=== PATIENT | female | born 1950 | race Caucasian/White ===

== ENCOUNTER 2017-03-10 14:52 | Emergency (ER) | payer OTHER ==
--- NOTE | 2017-03-10 14:56 | PDOC ---
Rapid Medical Evaluation Chief Complaint: Pain Time Seen by Provider: 03/10/17 14:55 Medical Evaluation: Allergies Allergy/AdvReac Type Severity Reaction Status Date / Time No Known Allergies Allergy Verified 09/26/14 12:56 03/10/17 14:57 Pt her for c/o: llq pain with diarrhea since tuesday, no fever, no urinary complaints, no hx of diverticulitis Pt on exam: afebrile, Pt ordered for : ua, ucx, cbc, comp Pt to proceed to the ED Discharge Disposition - Diagnosis Left sided abdominal pain - Referrals - Patient Instructions - Post Discharge Activity
[2017-03-10 14:57] VITALS: BMI 29.2
[2017-03-10 15:17] LABS: BASOPHIL 0.3 % (0-2.0); EOSINOPHIL 0.5 % (0-4.5); MCH 29.9 pg (25.7-33.7); MCHC 33.6 g/dl (32.0-36.0); MEAN CELL VOLUME 88.9 fl (80-96); MEAN PLT VOLUME 7.2 fl (7.5-11.1); NEUTROPHILS 74.5 % (42.8-82.8); PLATELET COUNT 307 K/MM3 (134-434); RDW 13.9 % (11.6-15.6); WHITE BLOOD COUNT 7.9 K/mm3 (4.0-10.0)
[2017-03-10 15:39] LABS: ALBUMIN 4.2 g/dl (3.4-5.0); ALK PHOS 136 U/L (45-117); ANION GAP 8 (8-16); BILIRUBIN,TOTAL 0.4 mg/dL (0.2-1.0); CALCIUM 9.6 mg/dL (8.5-10.1); CO2 26 mmol/L (21-32); CREATININE 0.6 mg/dL (0.55-1.02); GLUCOSE,RANDOM 129 mg/dL (74-106); SGOT/AST 10 U/L (15-37); SGPT/ALT 17 U/L (12-78); TOT PROT 7.9 g/dl (6.4-8.2)
[2017-03-10 15:40] LABS: URINE APPEARANCE SLCLOUDY; URINE BILIRUBIN NEGATIVE (NEGATIVE); URINE BLOOD 1+ (NEGATIVE); URINE COLOR YELLOW; URINE GLUCOSE (UA) NEGATIVE (NEGATIVE); URINE KETONE TRACE (NEGATIVE); URINE NITRITE POSITIVE (NEGATIVE); URINE PROTEIN NEGATIVE (NEGATIVE); URINE UROBILINOGEN NEGATIVE mg/dL (0.2-1.0)
[2017-03-10 17:15] LABS: URINE BACTERIA MODERATE /hpf (NONE SEEN); URINE MUCUS RARE; URINE WBC 35 /hpf (3-5)
[2017-03-10 17:24] LABS: URINE RBC 12 /hpf (0-3)
--- NOTE | 2017-03-10 17:44 | PDOC ---
Attending Attestation - Resident Resident Name: Archana Weaver - ED Attending Attestation I have performed the following: I have examined & evaluated the patient, The case was reviewed & discussed with the resident, I agree w/resident's findings & plan, Exceptions are as noted - HPI HPI: 03/10/17 17:37 66yo F hx HTN (pt states has only been given benicar samples from PMD) p/w LLQ pain radiating to L back intermittently for 4 days. Happens approx 2 times per day. Tried immodium without relief. Pt concerned she may have kidney stone. Also reports maloudorous urine, and frequency. Also reports non bloody diarrhea once 5 days ago but had a normal BM yesterday. Reports 1 day of "wheezing" in her lungs. Denies fevers, chills, chest pain, shortness of breath. Denies headache, focal weakness or numbness. Denies rashes. Denies history of renal colic. - Physicial Exam PE: 03/10/17 18:17 GENERAL: Awake, alert, and fully oriented, in no acute distress HEAD: No signs of trauma EYES: PERRLA, EOMI, sclera anicteric, conjunctiva clear ENT: Auricles normal inspection, hearing grossly normal, nares patent, oropharynx clear without exudates. Moist mucosa NECK: Normal ROM, supple, no lymphadenopathy, JVD, or masses LUNGS: Breath sounds equal, good airmovement but diffuse wheezing throughout. No work of breathing HEART: Regular rate and rhythm, normal S1 and S2, no murmurs, rubs or gallops ABDOMEN: Soft, LLQ ttp, normoactive bowel sounds. No guarding, no rebound. No masses. No CVAT EXTREMITIES: Normal range of motion, no edema. No clubbing or cyanosis. No cords, erythema, or tenderness NEUROLOGICAL: Normal speech, cranial nerves intact, negative pronator drift, 5/ 5 strength in all 4 extremities, normal sensation to light touch in all 4 extremities, normal cerebellar exam, normal gait, normal reflexes and tone SKIN: Warm, Dry, normal turgor, no rashes or lesions noted. - Medical Decision Making 03/10/17 18:19 66-year-old female with a history of hypertension presents with 4 days of intermittent left flank pain associated with malodorous urine. BP elevated to 150s systolic, pt reports she has not taken her BP medication in months. Exam is remarkable for mild left lower quadrant tenderness to palpation. Lungs also with diffuse wheezing. With regards to the left lower quadrant tenderness in association with malodorous urine there is concern for infected stone. Will obtain a CT/UA. Wheezing may be secondary to a viral upper respiratory infection as the patient's has a sick grandson at home. Will obtain a chest x- ray to rule out pneumonia and give duonebs and reassess. 03/10/17 18:32 Labs unremarkable. Urinalysis is nitrite positive with many white cells. Likely UTI. CT scan is pending for renal colic. CXR pending 03/10/17 19:00 Patient signed out to for further management.
--- NOTE | 2017-03-10 17:47 | PDOC ---
History of Present Illness - General Chief Complaint: Pain Stated Complaint: ABD PAIN Time Seen by Provider: 03/10/17 14:55 History Source: Patient Exam Limitations: No Limitations - History of Present Illness Initial Comments: This is a 66 YOF with h/o HTN who presents with episodic 7/10 LLQ cramping radiating to her left back for the past 3-4 days. She notes that the episodes come on twice a day for about an hour each, and generally the intensity is increasing over time. She has not taken any medications for her symptoms, and has never had pain like this before. She additionally notes strong and strange smell to her urine, urinary frequency, headache, and recent cough and wheezing. She denies any burning on urination, any hematuria, or any chest pain or shortness of breath. Pain Radiation: reports: no radiation Past History - Past Medical History Allergies/Adverse Reactions: Allergies Allergy/AdvReac Type Severity Reaction Status Date / Time No Known Allergies Allergy Verified 03/10/17 14:57 Home Medications: Ambulatory Orders Sulfamethoxazole/Trimethoprim [Bactrim Ds -] 1 tab PO BID #14 tablet 03/10/17 Anemia: No Asthma: No Cancer: No Cardiac Disorders: No COPD: No HTN: Yes (not on meds) - Surgical History Abdominal Surgery: Yes Cholecystectomy: Yes Gastric Stapling: No GI Surgery: No - Immunization History Immunization Up to Date: Yes - Suicide/Smoking/Psychosocial Hx Smoking Status: No Smoking History: Never smoked Have you smoked in the past 12 months: No Number of Cigarettes Smoked Daily: 0 Information on smoking cessation initiated: No Hx Alcohol Use: No Drug/Substance Use Hx: No Substance Use Type: None Review of Systems - Review of Systems Able to Perform ROS?: Yes Constitutional: No: Chills, Fever, Unexplained wgt Loss HEENTM: No: Nose Congestion, Throat Pain Respiratory: Yes: Cough, Wheezing. No: Shortness of Breath Cardiac (ROS): No: Chest Pain, Palpitations ABD/GI: Yes: Other (abdominal pain). No: Constipated, Diarrhea, Nausea, Vomiting : Yes: Frequency. No: Burning, Hematuria Musculoskeletal: Yes: Back Pain. No: Neck Pain Integumentary: No: Bruising, Rash Neurological: No: Headache, Numbness, Tingling, Weakness, Dizziness Endocrine: No: Unexplained Weight Gain, Unexplained Weight Loss *Physical Exam - Vital Signs Last Vital Signs Temp Pulse Resp BP Pulse Ox 97.7 F 89 18 158/91 98 03/10/17 14:54 03/10/17 14:54 03/10/17 14:54 03/10/17 14:54 03/10/17 14:54 - Physical Exam General Appearance: Yes: Nourished, Appropriately Dressed. No: Apparent Distress HEENT: positive: EOMI, Normal Voice, Hearing Grossly Normal. negative: Scleral Icterus (R), Scleral Icterus (L), Nasal Congestion Neck: positive: Trachea midline, Supple. negative: Tender, Rigid Respiratory/Chest: positive: Lungs Clear, Normal Breath Sounds, Wheezing (mild) . negative: Respiratory Distress, Crackles, Stridor Cardiovascular: positive: Regular Rhythm, Regular Rate. negative: Murmur Gastrointestinal/Abdominal: positive: Normal Bowel Sounds, Tender (mild left lower quadrant ttp), Soft. negative: Organomegaly, Pulsatile Mass, Guarding Musculoskeletal: positive: Normal Inspection. negative: Decreased Range of Motion, Vertebral Tenderness Extremity: positive: Normal Capillary Refill, Normal Inspection, Normal Range of Motion. negative: Tender, Cyanosis Integumentary: positive: Normal Color, Dry, Warm. negative: Erythema, Rash, Bruising Neurologic: positive: marketing recruiter II-XII NML intact, Fully Oriented, Alert, Normal Mood/ Affect, Normal Response, Motor Strength /5 ED Treatment Course - LABORATORY CBC & Chemistry Diagram: 03/10/17 15:05 03/10/17 15:05 - ADDITIONAL ORDERS Additional order review: Laboratory Results 03/10/17 03/10/17 15:25 15:05 Sodium 140 Potassium 4.1 Chloride 106 Carbon Dioxide 26 Anion Gap 8 BUN 13 Creatinine 0.6 Creat Clearance w eGFR > 60 Random Glucose 129 H D Calcium 9.6 Total Bilirubin 0.4 D AST 10 L D ALT 17 D Alkaline Phosphatase 136 H D Total Protein 7.9 Albumin 4.2 D Urine Color Yellow Urine Appearance Slcloudy Urine pH 6.0 Ur Specific [place] 1.018 Urine Protein Negative Urine Glucose (UA) Negative Urine Ketones Trace H Urine Blood 1+ H Urine Nitrite Positive Urine Bilirubin Negative Urine Urobilinogen Negative Urine WBC (Auto) 35 Urine RBC (Auto) 12 Urine Bacteria Moderate Urine Mucus Rare 03/10/17 15:05 RBC 4.34 MCV 88.9 MCHC 33.6 RDW 13.9 MPV 7.2 L Neutrophils % 74.5 Lymphocytes % 20.4 Monocytes % 4.3 Eosinophils % 0.5 Basophils % 0.3 Medical Decision Making - Medical Decision Making 66 YOF with HTN who presents with LLQ pain radiating to the left back x3-4d with urine odor and frequency. On exam she has mild ttp LLQ and no significant CVA tenderness. Also wheezy on lung exam. DDX IBNLT UTI, pyelo, obstructing stone, diverticulitis, colitis, etc. Ordered is UA Cx, CBCD, CMP, lipase, CXR, spiral CT. 03/10/17 18:46 Patient with e/o UTI on UA; culture pending. Other lab work non-directive. Patient still awaiting spiral CT. Care signed out to night resident at the end of my shift. *DC/Admit/Observation/Transfer Diagnosis at time of Disposition: Left sided abdominal pain, UTI (urinary tract infection) - Discharge Dispostion Disposition: HOME - Prescriptions Prescriptions: Sulfamethoxazole/Trimethoprim [Bactrim Ds -] 1 tab PO BID #14 tablet - Referrals - Patient Instructions Printed Discharge Instructions: DI for Urinary Tract Infection (UTI) Additional Instructions: Follow-up with your primary care doctor within 1 week. Your blood pressure was elevated in the emergency department, please discussed with her primary doctor and he may need to take blood pressure medications on a daily basis. Return to the emergency department if you have any new, worsening or concerning symptoms. - Post Discharge Activity
[2017-03-10 17:52] VITALS: TEMP 98.2
[2017-03-10 18:20] VITALS: BP 152/86; PULSE 85
[2017-03-10] MEDS ORDERED: ALBUTEROL SO4 2.5/IPRATROPIUM 0.5 INH SOL 3 ML VIAL.NEB. NEB ONE ×2 (18:21→18:42)
[2017-03-10] MEDS ORDERED: SULFAMETHOXAZOLE/TRIMETHOPRIM 800MG/160MG D.S. TABLET PO ONE (19:12)
[2017-03-10 19:38] LABS: URINE LEUK ESTERASE TRACE (NEGATIVE)
[2017-03-10] MEDS ORDERED: SULFAMETHOXAZOLE/TRIMETHOPRIM 800MG/160MG D.S. TABLET ONE (19:57)
--- NOTE | 2017-03-10 21:34 | PDOC ---
*Physical Exam - Vital Signs Last Vital Signs Temp Pulse Resp BP Pulse Ox 98.2 F 85 16 152/86 98 03/10/17 17:51 03/10/17 18:19 03/10/17 18:19 03/10/17 18:19 03/10/17 18:19 ED Treatment Course - LABORATORY CBC & Chemistry Diagram: 03/10/17 15:05 03/10/17 15:05 - ADDITIONAL ORDERS Additional order review: Laboratory Results 03/10/17 03/10/17 15:25 15:05 Sodium 140 Potassium 4.1 Chloride 106 Carbon Dioxide 26 Anion Gap 8 BUN 13 Creatinine 0.6 Creat Clearance w eGFR > 60 Random Glucose 129 H D Calcium 9.6 Total Bilirubin 0.4 D AST 10 L D ALT 17 D Alkaline Phosphatase 136 H D Total Protein 7.9 Albumin 4.2 D Urine Color Yellow Urine Appearance Slcloudy Urine pH 6.0 Ur Specific [place] 1.018 Urine Protein Negative Urine Glucose (UA) Negative Urine Ketones Trace H Urine Blood 1+ H Urine Nitrite Positive Urine Bilirubin Negative Urine Urobilinogen Negative Ur Leukocyte Esterase Trace H Urine WBC (Auto) 35 Urine RBC (Auto) 12 Urine Bacteria Moderate Urine Mucus Rare 03/10/17 15:05 RBC 4.34 MCV 88.9 MCHC 33.6 RDW 13.9 MPV 7.2 L Neutrophils % 74.5 Lymphocytes % 20.4 Monocytes % 4.3 Eosinophils % 0.5 Basophils % 0.3 - Medications Given in the ED: ED Medications Discontinued Medications Generic Name Dose Route Start Last Admin Trade Name Freq PRN Reason Stop Dose Admin Albuterol/Ipratropium 2 amp 03/10/17 18:21 03/10/17 18:24 Duoneb - NEB 03/10/17 18:22 2 amp ONCE ONE Administration Trimethoprim/Sulfamethoxazole 1 each 03/10/17 19:12 03/10/17 19:59 Bactrim Ds - PO 03/10/17 19:13 1 each ONCE ONE Administration Medical Decision Making - Medical Decision Making 03/10/17 21:31 patient signed out from Dr. Weaver 03/10/17 21:32 1. No obstructive uropathy. No urinary tract calculi. 2. Focal area of cortical scarring/volume loss in the midpole of the right kidney with 8 mm cortical calcification, most likely the sequela of prior infection or infarction. 3. Status post cholecystectomy. Moderate-sized right upper quadrant incisional hernia containing predominantly fat and portion of the wall in the proximal transverse colon. No evidence of bowel obstruction. 4. Submucosal fat deposition throughout the colon is suggestive of chronic recurrent inflammation. 5. Normal appendix. Patient will be discharged with Bactrim Ds prescription. *DC/Admit/Observation/Transfer Diagnosis at time of Disposition: Left sided abdominal pain, UTI (urinary tract infection) - Discharge Dispostion Disposition: HOME Admit: No - Prescriptions Prescriptions: Sulfamethoxazole/Trimethoprim [Bactrim Ds -] 1 tab PO BID #14 tablet - Referrals - Patient Instructions Printed Discharge Instructions: DI for Urinary Tract Infection (UTI) Additional Instructions: Follow-up with your primary care doctor within 1 week. Your blood pressure was elevated in the emergency department, please discussed with her primary doctor and he may need to take blood pressure medications on a daily basis. Return to the emergency department if you have any new, worsening or concerning symptoms. - Post Discharge Activity
--- NOTE | 2017-03-12 08:24 | PDOC ---
Patient Follow-up (Call Back) - Post ED Follow - Up Disposition at time of original discharge: HOME Reason for Call Back: Abnwl. Microbiology (Pt on batrim. Will await final cx report)
== END 2017-03-10 21:48 | disposition home or self-care (01) ==
LOC: JER 14:52
PROC: 3E0F7GC Introduction of Other Therapeutic Substance into Respiratory Tract, Via Natural or Artificial Opening (ICD-10-PCS; principal; 2017-03-10)
DX: N39.0 Urinary tract infection, site not specified (principal); I10 Essential (primary) hypertension
CPT/HCPCS: 36415; 71020-TC; 74176; 80053; 81003; 81015; 85025; 87086; 87186; 99282-25

== ENCOUNTER 2017-07-11 22:44 | Emergency (ER) | payer OTHER ==
[2017-07-11 22:54] VITALS: BP 158/93; PULSE 87; TEMP 97.4; BMI 27.3
--- NOTE | 2017-07-12 00:27 | PDOC ---
History of Present Illness - General Chief Complaint: Pain Stated Complaint: ABDOMINAL PAIN, LUMP Time Seen by Provider: 07/12/17 00:27 - History of Present Illness Initial Comments: 66 year old female with PMH of HTN (currently unmedicated because of loss of PCP) presenting with RLQ pain and swelling for the past day. States that she sometimes feels a lump there. She is a very poor medical instructor and doesn't recall ever being told she has a hernia at that site but imaging in our system demonstrated a fat and traverse colon wall hernia in that region. Denies fevers , nausea, vomiting, diarrhea, constipation, urinary symptoms, or other symptoms. She did not take any OTC medications because she "does not believe in medication". 07/12/17 01:51 Past History - Past Medical History Allergies/Adverse Reactions: Allergies Allergy/AdvReac Type Severity Reaction Status Date / Time No Known Allergies Allergy Verified 07/11/17 22:50 Home Medications: Ambulatory Orders Sulfamethoxazole/Trimethoprim [Bactrim Ds -] 1 tab PO BID #14 tablet 03/10/17 Anemia: No Asthma: No Cancer: No Cardiac Disorders: No COPD: No HTN: Yes (not on meds) - Surgical History Abdominal Surgery: Yes Cholecystectomy: Yes Gastric Stapling: No GI Surgery: No - Immunization History Immunization Up to Date: Yes - Suicide/Smoking/Psychosocial Hx Smoking Status: No Smoking History: Never smoked Have you smoked in the past 12 months: No Number of Cigarettes Smoked Daily: 0 Information on smoking cessation initiated: No Hx Alcohol Use: No Drug/Substance Use Hx: No Substance Use Type: None Review of Systems - Review of Systems Constitutional: No: Chills, Diaphoresis, Fever HEENTM: No: Blurred Vision, Tearing, Double Vision Respiratory: No: Cough, Orthopnea, Shortness of Breath, Wheezing Cardiac (ROS): No: Chest Pain, Edema, Syncope ABD/GI: No: Diarrhea, Nausea, Vomiting : No: Burning, Dysuria, Discharge Integumentary: Yes: Lumps. No: Change in Color, Lesions, Pruritus, Rash Neurological: No: Headache, Numbness, Paresthesia Endocrine: No: Flushing, Intolerance to Cold Hematologic/Lymphatic: No: Anemia, Easy Bleeding *Physical Exam - Vital Signs Last Vital Signs Temp Pulse Resp BP Pulse Ox 97.4 F L 87 18 158/93 100 07/11/17 22:50 07/11/17 22:50 07/11/17 22:50 07/11/17 22:50 07/11/17 22:50 - Physical Exam General Appearance: Yes: Nourished, Appropriately Dressed. No: Apparent Distress HEENT: positive: EOMI, AMIRA, Normal ENT Inspection, Normal Voice Neck: positive: Trachea midline, Normal Thyroid, Supple. negative: Tender, Rigid Respiratory/Chest: positive: Lungs Clear, Normal Breath Sounds. negative: Chest Tender, Respiratory Distress, Accessory Muscle Use Cardiovascular: positive: Regular Rhythm, Regular Rate Gastrointestinal/Abdominal: positive: Normal Bowel Sounds, Tender (tender in RUQ over site of a soft mass). negative: Flat (Soft mass in RUQ that was able to be reduced. Reduction of mass immediately resulted increaed bowel sounds and relief of pain) Musculoskeletal: positive: Normal Inspection. negative: CVA Tenderness Extremity: positive: Normal Capillary Refill, Normal Inspection, Normal Range of Motion Integumentary: positive: Normal Color, Dry, Warm Neurologic: positive: Fully Oriented, Alert, Normal Mood/Affect, Normal Response ED Treatment Course - LABORATORY CBC & Chemistry Diagram: 07/12/17 00:58 07/12/17 00:58 Medical Decision Making - Medical Decision Making 66 year old female with known RUQ hernia with worsening pain and mass in that area. Hernia likely reduced during physical exam with relief of pain. CT A/P demonstrating spigalien hernia without bowel obstruction or incarceration. Will DC with anti-inflammatory use instructions and general surgery follow up. 07/12/17 03:30 *DC/Admit/Observation/Transfer Diagnosis at time of Disposition: Spigelian hernia - Discharge Dispostion Disposition: HOME Condition at time of disposition: Improved Admit: No - Referrals Referrals: Valerio Mata MD [Staff Physician] - - Patient Instructions Printed Discharge Instructions: DI for Hernia Repair Additional Instructions: You have a hernia that we reduced here in the ED. You absolutely need to follow up with general surgery this week and discuss the option for surgical repair. Please use Tylenol and Motrin for pain. Please return to the ED if you have new or worsening symptoms. - Post Discharge Activity
[2017-07-12 01:06] LABS: HEMATOCRIT 35.7 % (32.4-45.2); HEMOGLOBIN 12.1 GM/dL (10.7-15.3); MCH 30.4 pg (25.7-33.7); MCHC 33.8 g/dl (32.0-36.0); MEAN PLT VOLUME 7.3 fl (7.5-11.1); PLATELET COUNT 276 K/MM3 (134-434); RBC 3.97 M/mm3 (3.60-5.2); RDW 13.8 % (11.6-15.6); WHITE BLOOD COUNT 7.8 K/mm3 (4.0-10.0)
--- NOTE | 2017-07-12 01:27 | PDOC ---
Attending Attestation - Resident Resident Name: Domingo Soriano - ED Attending Attestation I have performed the following: I have examined & evaluated the patient, The case was reviewed & discussed with the resident, I agree w/resident's findings & plan, Exceptions are as noted - HPI HPI: 07/12/17 01:12 66-year-old female with history of hypertension, cholecystectomy, no primary care physician presents with 1 day of right-sided abdominal pain and "swelling" . The patient reports that she felt the lump but denied any nausea or vomiting or diarrhea or fevers. Patient did report 2 days ago for one episode of loose stools and now resolved. Denies sick contacts or recent travels. Came to the ED for evaluation. - Physicial Exam PE: 07/12/17 01:26 GENERAL: Awake, alert, and fully oriented, in no acute distress. HEAD: No signs of trauma EYES: PERRLA, EOMI, sclera anicteric, conjunctiva clear ENT: Auricles normal inspection, hearing grossly normal, nares patent NECK: Normal ROM, supple ABDOMEN: TTP mild R mid abdomen. negative mejia sign. Soft, No guarding, no rebound. No masses EXTREMITIES: Normal range of motion, no edema. No clubbing or cyanosis. No cords, erythema, or tenderness NEUROLOGICAL: Cranial nerves II through XII grossly intact. Normal speech, normal gait SKIN: Warm, Dry, normal turgor, no rashes or lesions noted. - Medical Decision Making 07/12/17 01:27 Vital Signs Temp Pulse Resp BP Pulse Ox 97.4 F L 87 18 158/93 100 07/11/17 22:50 07/11/17 22:50 07/11/17 22:50 07/11/17 22:50 07/11/17 22:50 58-year-old female presents with right-sided abdominal pain. The patient was seen previously by my resident, Dr. Soriano, who had appreciated potential incisional hernia right along her old scars of a cholecystectomy. I suspect this is likely the case. We'll obtain blood work and a CAT scan abdomen pelvis. If workup demonstrates no incarceration or strength relation and otherwise negative workup, the patient to be discharged with general surgery follow-up as well as a primary care physician follow-up. 07/12/17 03:29 CBC, BMP 07/12/17 00:58 07/12/17 00:58 CMP Sodium 141 mmol/L (136-145) 07/12/17 00:58 Potassium 3.6 mmol/L (3.5-5.1) 07/12/17 00:58 Chloride 107 mmol/L (98-107) 07/12/17 00:58 Carbon Dioxide 30 mmol/L (21-32) 07/12/17 00:58 Anion Gap 4 (8-16) L 07/12/17 00:58 BUN 16 mg/dL (7-18) 07/12/17 00:58 Creatinine 0.7 mg/dL (0.55-1.02) 07/12/17 00:58 Creat Clearance w eGFR > 60 (>60) 07/12/17 00:58 Random Glucose 112 mg/dL (74-106) H 07/12/17 00:58 Calcium 8.6 mg/dL (8.5-10.1) 07/12/17 00:58 Total Bilirubin 0.1 mg/dL (0.2-1.0) L D 07/12/17 00:58 AST 15 U/L (15-37) 07/12/17 00:58 ALT 15 U/L (12-78) 07/12/17 00:58 Alkaline Phosphatase 140 U/L (45-117) H 07/12/17 00:58 Total Protein 7.5 g/dl (6.4-8.2) 07/12/17 00:58 Albumin 3.9 g/dl (3.4-5.0) 07/12/17 00:58 Lipase 87 U/L (73-393) 07/12/17 00:58 CT scan demonstrates moderate size right Emiliano and hernia containing fat and inflamed, demonstrated traction and descending colon without felipe colonic entrapment or bowel obstruction. We'll have the patient follow-up with the general surgeon. Patient reports feeling better.
[2017-07-12 01:35] LABS: ALBUMIN 3.9 g/dl (3.4-5.0); ANION GAP 4 (8-16); BILIRUBIN,TOTAL 0.1 mg/dL (0.2-1.0); BLOOD UREA NITROGEN 16 mg/dL (7-18); CALCIUM 8.6 mg/dL (8.5-10.1); CHLORIDE 107 mmol/L (98-107); CO2 30 mmol/L (21-32); CREATININE 0.7 mg/dL (0.55-1.02); GLUCOSE,RANDOM 112 mg/dL (74-106); LIPASE 87 U/L (73-393); POTASSIUM 3.6 mmol/L (3.5-5.1); SGOT/AST 15 U/L (15-37); SGPT/ALT 15 U/L (12-78); SODIUM 141 mmol/L (136-145); TOT PROT 7.5 g/dl (6.4-8.2)
[2017-07-12 01:36] LABS: ALK PHOS 140 U/L (45-117)
[2017-07-12 02:17] LABS: URINE APPEARANCE CLEAR; URINE BILIRUBIN NEGATIVE (<2.0 mg/dL); URINE BLOOD NEGATIVE (NEGATIVE); URINE COLOR LTYELLOW; URINE GLUCOSE (UA) NEGATIVE (NEGATIVE); URINE KETONE NEGATIVE (NEGATIVE); URINE LEUK ESTERASE TRACE (NEGATIVE); URINE NITRITE NEGATIVE (NEGATIVE); URINE PROTEIN NEGATIVE (NEGATIVE); URINE UROBILINOGEN NEGATIVE mg/dL (0.2-1.0)
[2017-07-12 02:50] LABS: EPI CELLS RARE /HPF (FEW); URINE MUCUS RARE
== END 2017-07-12 04:00 | disposition home or self-care (01) ==
LOC: JER 22:44
DX: K43.9 Ventral hernia without obstruction or gangrene (principal); I10 Essential (primary) hypertension
CPT/HCPCS: 36415; 74177-TC; 80053; 81003; 81015; 83690; 85027; 87086; 99283-25

== ENCOUNTER 2018-01-20 06:21 | Inpatient (IN) | payer MEDICARE, OTHER ==
[2018-01-20] MEDS ORDERED: ACETAMINOPHEN INJECTION 100 ML IVPB ONE (07:00)
[2018-01-20] MEDS ORDERED: SEVOFLURANE 250 ML BTL ONE (07:02)
[2018-01-20] MEDS ORDERED: DESFLURANE GAS 240 ML BOTTLE IH ONE (07:04)
[2018-01-20] MEDS ORDERED: PROPOFOL 20 ML ONE ×2 (07:07)
[2018-01-20] MEDS ORDERED: DEXAMETHASONE SOD PHOSPHATE 4 MG/1 ML VIAL ONE (07:07)
[2018-01-20] MEDS ORDERED: ROCURONIUM BROMIDE 50 MG/5 ML VIAL ONE ×2 (07:07)
[2018-01-20] MEDS ORDERED: LIDOCAINE HCL/PF 2% SDV 5ML VIAL ONE (07:07)
[2018-01-20] MEDS ORDERED: GLYCOPYRROLATE 0.2 MG/1 ML VIAL ONE (07:07)
[2018-01-20] MEDS ORDERED: SUCCINYLCHOLINE CHLORIDE 200 MG/10 ML VIAL ONE (07:08)
[2018-01-20] MEDS ORDERED: NEOSTIGMINE METHYLSULFATE 0.5 MG/ML - 10 ML MDV ONE (07:08)
[2018-01-20] MEDS ORDERED: MIDAZOLAM HCL 2 MG/2 ML SINGLE DOSE VIAL ONE (07:08)
--- NOTE | 2018-01-20 08:00 | HP ---
History & Physical Update - History History: No Change - Physical Physical: No Change - Assessment Assessment: No Change - Plan Plan: No Change (Full H&P in chart)
[2018-01-20] MEDS ORDERED: BUPIVACAINE HCL/PF 0.5% (5MG/ML) 10 ML VIAL ONE (08:03)
[2018-01-20] MEDS ORDERED: ceFAZolin SODIUM 1 GM VIAL IVPB ONE (08:57)
[2018-01-20] MEDS ORDERED: BUPIVACAINE HCL/PF 0.5% (5MG/ML) 10 ML VIAL IJ ONE (09:00)
[2018-01-20] MEDS ORDERED: ALBUTEROL SO4 8 GM HFA INHALER IH ONE (11:13)
[2018-01-20] MEDS ORDERED: PROMETHAZINE HCL 25 MG/1 ML VIAL IVPB PRN (11:37)
--- NOTE | 2018-01-20 11:44 | OP ---
Operative Note - Note: Operative Date: 01/20/18 Pre-Operative Diagnosis: Incarcerated incisional hernia Operation: Robotic assisted lysis of adhesions and incisional hernia repair Post-Operative Diagnosis: Same as Pre-op Surgeon: Judah Nieves Long Term Care Administrator: Kit Denton Anesthesiologist/PROJECT MANAGER/DESIGN MANAGER: Steven Underwood Anesthesia: General Estimated Blood Loss (mls): 30 Operative Report Dictated: Yes
--- NOTE | 2018-01-20 11:56 | OP ---
DATE OF OPERATION: 01/20/2018 PROCEDURE: Robotic-assisted laparoscopic lysis of adhesions and incisional hernia repair with mesh. PREOPERATIVE DIAGNOSIS: Incisional hernia with obstruction. POSTOPERATIVE DIAGNOSIS: Incisional hernia with obstruction and intraabdominal adhesions. SURGEON: Judah Nieves MD SPECIAL EDUCATION DIRECTOR: NINA Mares ANESTHESIA: General endotracheal. FINDINGS ON PROCEDURE: This is a 67-year-old female who presents with 8 x 6 c bulge of the right subcostal incision following cholecystectomy several years ago. The patient complains of right subcostal pain and bulging aggravated by exertion. Preoperative CT scan revealed an incarcerated incisional hernia containing fat. So, patient was advised repair of the hernia and consent was obtained after discussing the risks , benefits, and alternatives of the procedure. DESCRIPTION OF PROCEDURE: Patient was brought to the operating room and placed in supine position. General endotracheal anesthesia was administered. The abdomen was prepped and draped in the usual sterile fashion. Using 0.5% Marcaine, local anesthesia was administered to the proposed incision sites. A Veress needle was used to establish pneumoperitoneum via a puncture wound at the left subcostal region. Pneumoperitoneum was established. An 8-mm port was inserted at the infraumbilical area using scalpel blade No. 15. A 3D 30-degree laparoscope was inserted, and the peritoneal cavity was carefully inspected. It was noted to be free of inadvertent injury. Two 8-mm ports were inserted 8 cm away from the umbilical port, one to the right and one to the left side, in an oblique fashion. The target organ was set, and the robotic arms were docked. The EndoWrist ladonna connected to monopolar cautery was inserted at the left-sided port. The fenestrated bipolar forceps was inserted at the right port. The undersigned then scrubbed out to commence the consult part of the procedure. The dense omental adhesions to the posterior abdominal wall at the right upper quadrant region were taken down sharply using the EndoWrist ladonna connected to monopolar cautery. Hemostasis was achieved intermittently using the fenestrated bipolar forceps. The hernia was reduced with combined blunt traction and taking down of the adhesions using the EndoWrist ladonna. Part of the transverse colon was partially incarcerated. After the reduction was completed, the hernia defect which was about 4 cm in its widest diameter was closed with a continuous V-Loc No. 1 non-absorbable suture. This was followed by deployment of a 10 x 15 cm Symbotex Mesh with the adhesion barrier side facing the peritoneal cavity. The mesh was anchored to the posterior abdominal wall using the continuous V-Loc 2-0 absorbable sutures. After deployment was completed, small amount of blood and blood clots were suctioned. The peritoneal cavity was again carefully inspected and was noted to be free of inadvertent injury or active bleeding. The robotic arms were undocked, and the pneumoperitoneum was evacuated. The ports were removed and the wounds were closed with subcuticular Biosyn 4-0 sutures reinforced with Dermabond. The patient was successfully extubated and transferred to the post-anesthesia care unit in satisfactory condition. ESTIMATED BLOOD LOSS: About 30 mL. WOUND CLASS: Clean. The patient received 2 g of Ancef prior to the start of the procedure. Yamileth [id number] MTDD
--- NOTE | 2018-01-20 11:56 | SURG ---
Surgery Through Operator Note Through Operator: Kit Denton PA-C Date of Service: 01/20/18 Diagnosis: Incarcerated incisional hernia Procedure: Robotic assisted lysis of adhesions and incisional hernia repair I was present for the entirety of the operative procedure. For further detail, please refer to operative report.
[2018-01-20] MEDS ORDERED: ONDANSETRON 4 MG/2 ML VIAL ONE (12:19)
[2018-01-20] MEDS: ONDANSETRON 4 MG/2 ML VIAL IVPUSH PRN (12:30)
[2018-01-20] MEDS ORDERED: oxyCODONE HCL 5 MG TABLET ONE (12:44)
[2018-01-20] MEDS: oxyCODONE HCL 5 MG TABLET PO PRN ×3 (12:50→23:29)
[2018-01-20] MEDS ORDERED: HYDROmorphone HCl 2 MG/ML VIAL ONE (14:15)
[2018-01-20] MEDS: HYDROmorphone HCl 2 MG/ML VIAL IVPUSH PRN ×4 (14:30→15:10)
[2018-01-20] MEDS: LABETALOL HCL 5 MG/1 ML (100MG/20 ML VIAL) IVPUSH ONE ×2 (16:45→19:27)
[2018-01-20] MEDS: LACTATED RINGERS SOLUTION 1,000 ML IV SCH (19:26)
[2018-01-20] MEDS ORDERED: ONDANSETRON 4 MG/2 ML VIAL IVPUSH PRN (20:05)
[2018-01-20] MEDS: ACETAMINOPHEN 325 MG TABLET (FP) PO PRN (23:56)
[2018-01-21] MEDS: oxyCODONE HCL 5 MG TABLET PO PRN ×3 (02:13→17:38)
[2018-01-21] MEDS: ONDANSETRON 4 MG/2 ML VIAL IVPUSH PRN (02:50)
[2018-01-21] MEDS: LACTATED RINGERS SOLUTION 1,000 ML IV SCH (05:28)
[2018-01-21] MEDS: ACETAMINOPHEN 325 MG TABLET (FP) PO PRN ×2 (09:52→17:37)
[2018-01-21] MEDS ORDERED: morphine CARPU-JECT 2 MG/1 ML DISP.SYRIN IVPUSH PRN (14:41)
[2018-01-21] MEDS ORDERED: morphine SULFATE 4 MG/ML VIAL ONE (14:47)
[2018-01-21] MEDS: DEXTROSE 5%-0.45% SALINE 1,000 ML IV SCH (14:54)
--- NOTE | 2018-01-21 16:51 | CONSULT ---
Consult Consult Specialty:: Surgery - History of Present Illness Chief Complaint: Post-op pain and elevated BP History of Present Illness: 67 y.o. female s/p robotic assisted incisional hernia repair and lysis of adhesions admitted for moderate to severe abdominal pain unrelieved by p.o. narcotics associated with HTN and nausea. - History Source History Provided By: Patient Limitations to Obtaining History: No Limitations (open with subsequent development of incarcerated incisional hernia) - Past Medical History Cardio/Vascular: Yes: HTN Gastrointestinal: Yes: Irritable Bowel Disease (with alternating diarrhea and constipation) - Past Surgical History Past Surgical History: Yes: Cholecystectomy (Remote) - Alcohol/Substance Use Hx Alcohol Use: No - Smoking History Smoking history: Never smoked Have you smoked in the past 12 months: No Aproximately how many cigarettes per day: 0 - Social History ADL: Independent Home Medications - Allergies Allergies/Adverse Reactions: Allergies Allergy/AdvReac Type Severity Reaction Status Date / Time No Known Allergies Allergy Verified 01/20/18 06:57 - Home Medications Home Medications: Ambulatory Orders Aspirin [ASA -] 81 mg PO DAILY 01/16/18 Docusate Sodium [Colace] 100 mg PO BID #30 capsule 01/20/18 Oxycodone HCl/Acetaminophen [Percocet 5-325 mg Tablet] 1 tab PO Q6H PRN #16 tablet MDD 4 01/20/18 Review of Systems - Review of Systems Constitutional: reports: Loss of Appetite HENT: reports: No Symptoms Neck: reports: No Symptoms Cardiovascular: reports: No Symptoms Respiratory: reports: No Symptoms Gastrointestinal: reports: Abdominal Pain, Nausea Genitourinary: reports: No Symptoms Physical Exam Vital Signs: Vital Signs Temperature 98.2 F 01/21/18 15:56 Pulse Rate 90 01/21/18 15:56 Respiratory Rate 16 01/21/18 15:56 Blood Pressure 143/69 01/21/18 15:56 O2 Sat by Pulse Oximetry (%) 95 01/20/18 22:30 Constitutional: Yes: Obese Eyes: Yes: Conjunctiva Clear HENT: Yes: Normocephalic Neck: Yes: Supple Cardiovascular: Yes: Regular Rate and Rhythm Respiratory: Yes: CTA Bilaterally Gastrointestinal: Yes: Abdomen, Obese Extremities: Yes: WNL Wound/Incision: Yes: Clean/Dry, Dressing Dry and Intact (hernia site with ecchymosis and fullness consistent with seroma) Neurological: Yes: Alert, Oriented Problem List - Problems (1) HTN (hypertension) Assessment/Plan: Admit for medical management of elevated BP Code(s): I10 - ESSENTIAL (PRIMARY) HYPERTENSION (2) Incisional hernia Assessment/Plan: POS-OP Continue IV narcotics for severe pain Regular diet p.o laxative OOB, IS abdominal binder for comfort may D/C home when tolerating diet and when relieved by p.o. narcotrics Code(s): K43.2 - INCISIONAL HERNIA WITHOUT OBSTRUCTION OR GANGRENE
[2018-01-21] MEDS: DOCUSATE SODIUM 100 MG CAPSULE (FP) PO SCH (22:30)
--- NOTE | 2018-01-21 23:05 | HP ---
Admitting History and Physical - Past Medical History Cardiovascular: Yes: HTN Gastrointestinal: Yes: Irritable Bowel Disease (with alternating diarrhea and constipation) - Past Surgical History Past Surgical History: Yes: Cholecystectomy (Remote) - Smoking History Smoking history: Never smoked Have you smoked in the past 12 months: No Aproximately how many cigarettes per day: 0 - Alcohol/Substance Use Hx Alcohol Use: No - Social History ADL: Independent Home Medications - Allergies Allergies/Adverse Reactions: Allergies Allergy/AdvReac Type Severity Reaction Status Date / Time No Known Allergies Allergy Verified 01/20/18 06:57 - Home Medications Home Medications: Ambulatory Orders Aspirin [ASA -] 81 mg PO DAILY 01/16/18 Docusate Sodium [Colace] 100 mg PO BID #30 capsule 01/20/18 Oxycodone HCl/Acetaminophen [Percocet 5-325 mg Tablet] 1 tab PO Q6H PRN #16 tablet MDD 4 01/20/18 Physical Examination Vital Signs: Vital Signs Temperature 98.6 F 01/21/18 19:35 Pulse Rate 88 01/21/18 19:35 Respiratory Rate 18 01/21/18 21:00 Blood Pressure 148/83 01/21/18 19:35 O2 Sat by Pulse Oximetry (%) 94 L 01/21/18 21:00
[2018-01-22] MEDS ORDERED: morphine SULFATE 4 MG/ML VIAL IVPUSH PRN (02:26)
[2018-01-22] MEDS: oxyCODONE HCL 5 MG TABLET PO PRN ×2 (02:29→11:08)
[2018-01-22] MEDS: DEXTROSE 5%-0.45% SALINE 1,000 ML IV SCH ×2 (02:54→16:06)
[2018-01-22] MEDS: ACETAMINOPHEN 325 MG TABLET (FP) PO PRN ×2 (05:42→11:09)
[2018-01-22] MEDS: DOCUSATE SODIUM 100 MG CAPSULE (FP) PO SCH ×4 (05:42→21:14)
[2018-01-22 08:38] LABS: BASO % 0.5 % (0-2.0); EOS % 0.1 % (0-4.5); HEMATOCRIT 30.5 % (32.4-45.2); HEMOGLOBIN 10.1 GM/dL (10.7-15.3); LYMPH % 16.7 % (8-40); MEAN CELL VOLUME 90.8 fl (80-96); MEAN PLT VOLUME 8.3 fl (7.5-11.1); MONO % 5.5 % (3.8-10.2); NEUT % 77.2 % (42.8-82.8); PLATELET COUNT 202 K/MM3 (134-434); RBC 3.36 M/mm3 (3.60-5.2); RDW 14.5 % (11.6-15.6); WHITE BLOOD COUNT 12.1 K/mm3 (4.0-10.0)
[2018-01-22 09:11] LABS: ALK PHOS 121 U/L (45-117); ANION GAP 7 MMOL/L (8-16); BLOOD UREA NITROGEN 14 mg/dL (7-18); CALCIUM 8.2 mg/dL (8.5-10.1); CHLORIDE 102 mmol/L (98-107); CO2 25 mmol/L (21-32); CREATININE 0.6 mg/dL (0.55-1.3); GLUCOSE,RANDOM 131 mg/dL (74-106); POTASSIUM 3.8 mmol/L (3.5-5.1); SGOT/AST 60 U/L (15-37); SGPT/ALT 58 U/L (13-61); SODIUM 134 mmol/L (136-145)
[2018-01-22] MEDS: HEPARIN NA (PORCINE) 5,000 UNITS/ML 1ML VIAL SQ SCH ×2 (09:36→21:00)
--- NOTE | 2018-01-22 17:06 | PN ---
Progress Note (short form) - Note Progress Note: POD #2 Post-op pain decreased. No flatus or bm yet Vomited once but tolerated soup later. O2 sat noted to be low without O2 Afebrile, BP = 145/77 mm Hg Abd: obese, soft, mild RUQ tenderness, no progression of ecchymosis WBC = 12 k IS = 250 ml onl A/P: Post-op atelectasis, HTN encourage ambulation, IS q hour recommend starting BP meds Problem List - Problems (1) HTN (hypertension) Code(s): I10 - ESSENTIAL (PRIMARY) HYPERTENSION (2) Incisional hernia Code(s): K43.2 - INCISIONAL HERNIA WITHOUT OBSTRUCTION OR GANGRENE
[2018-01-22] MEDS: LACTATED RINGERS SOLUTION 1,000 ML IV SCH ×2 (18:20→19:39)
[2018-01-22] MEDS ORDERED: amLODIPine BESYLATE 2.5 MG TABLET (FP) PO ONE (20:45)
[2018-01-22] MEDS ORDERED: LOSARTAN POTASSIUM 25 MG TABLET PO STA (22:06)
[2018-01-22] MEDS ORDERED: LABETALOL HCL 100 MG TABLET (FP) PO STA (22:08)
[2018-01-22] MEDS ORDERED: METOPROLOL TARTRATE 5 MG/5 ML VIAL IVPUSH STA (22:08)
--- NOTE | 2018-01-22 23:02 | CONSULT ---
Consultation: REQUESTING PROVIDER: CONSULT REQUEST: We have been asked to medically evaluate this patient for ( specify). HISTORY OF PRESENT ILLNESS: This is a 67 yo F with poor prior medical f/u and recently established PMH of HTN and irritable bowel disease, here POD 2 s/p robotic assisted incisional hernia repair and lysis of adhesions, who experienced sudden onset pleuritic cp this evening and found to be hypertensive 200 systolic. patient has been on norvasc 2.5 daily and hep sq post op. She was not tachycardic but was found to have new t inversions in v1-3 in ekg. labetalol was pushed, bringing her BP to 155 systolic. Her CP is now gone. She denies sob, cough, dizziness, loc, palpitations, back pain, n/v, h/a, change in vision. She denies prior history of cp, heart disease, family history of heart disease or smoking history REVIEW OF SYSTEMS: CONSTITUTIONAL: Absent: fever, chills HEENT: Absent: throat pain, throat swelling, difficulty swallowing CARDIOVASCULAR: Absent: syncope, palpitations, irregular heart rate, lightheadedness, peripheral edema RESPIRATORY: Absent: cough, shortness of breath, dyspnea with exertion, orthopnea, hemoptysis GASTROINTESTINAL: Absent: nausea, vomiting GENITOURINARY: Absent: flank pain MUSCULOSKELETAL: Absent: back pain, neck pain SKIN: Absent: rash, itching, pallor HEMATOLOGIC/IMMUNOLOGIC: Absent: easy bleeding, easy bruising ENDOCRINE: Absent: unexplained weight gain, unexplained weight loss NEUROLOGIC: Absent: headache, focal weakness or paresthesias PSYCHIATRIC: Absent: anxiety, depression PHYSICAL EXAMINATION Vital Signs - 24 hr 01/22/18 01/22/18 01/22/18 02:22 07:30 08:30 Temperature 99.3 F 98.6 F Pulse Rate 107 H 110 H Respiratory 18 18 20 Rate Blood Pressure 144/66 130/70 O2 Sat by Pulse 94 L Oximetry (%) 01/22/18 01/22/18 14:45 17:32 Temperature 97.9 F 98.2 F Pulse Rate 89 92 H Respiratory 20 20 Rate Blood Pressure 145/77 164/90 O2 Sat by Pulse Oximetry (%) GENERAL: Awake, alert, and fully oriented, in no acute distress. HEAD: Normal with no signs of trauma. EYES: Pupils equal, round and reactive to light, extraocular movements intact, sclera anicteric, conjunctiva clear. No lid lag. No fundoscope available for fundo exam. EARS, NOSE, THROAT: Moist mucous membranes. NECK: supple no jvd LUNGS: Breath sounds equal, clear to auscultation bilaterally HEART: Regular rate and rhythm, normal S1 and S2 ABDOMEN: Soft, milldy tender tender, not distended, mildly decreased bowel sounds, no guarding MUSCULOSKELETAL: No CVA tenderness. UPPER EXTREMITIES: 2+ pulses, warm, well-perfused. LOWER EXTREMITIES: 2+ pulses, warm, well-perfused. No calf tenderness. No peripheral edema. NEUROLOGICAL: Cranial nerves II-XII intact. Normal speech. Normal gait. PSYCHIATRIC: Cooperative. Good eye contact. Appropriate mood and affect. SKIN: Warm, dry Laboratory Results - last 24 hr 01/22/18 01/22/18 08:00 08:00 WBC 12.1 H RBC 3.36 L Hgb 10.1 L Hct 30.5 L MCV 90.8 MCH 30.0 MCHC 33.0 RDW 14.5 Plt Count 202 D MPV 8.3 D Absolute Neuts (auto) 9.4 H Neutrophils % 77.2 Lymphocytes % 16.7 Monocytes % 5.5 Eosinophils % 0.1 Basophils % 0.5 Nucleated RBC % 0 Sodium 134 L Potassium 3.8 Chloride 102 Carbon Dioxide 25 Anion Gap 7 L BUN 14 Creatinine 0.6 Creat Clearance w eGFR > 60 Random Glucose 131 H Calcium 8.2 L Total Bilirubin 2.0 H AST 60 H ALT 58 Alkaline Phosphatase 121 H Total Protein 6.0 L Albumin 3.0 L Active Medications Generic Name Dose Route Start Last Admin Trade Name Jorgeq PRN Reason Stop Dose Admin Acetaminophen 650 mg 01/20/18 15:03 01/22/18 11:09 Tylenol - PO 650 mg Q6H PRN Administration PAIN LEVEL 1-5 Amlodipine Besylate 2.5 mg 01/23/18 10:00 Norvasc - PO DAILY [facility] Docusate Sodium 100 mg 01/21/18 22:00 01/22/18 21:14 Colace - PO Not Given TID [facility] Heparin Sodium (Porcine) 5,000 unit 01/22/18 10:00 01/22/18 21:00 Heparin - SQ 5,000 unit BID ILEANA Administration Lactated Ringer's 1,000 mls @ 125 mls/hr 01/20/18 11:45 01/22/18 19:39 Lactated Ringers Solution IV Not Given ASDIR ILEANA Dextrose/Sodium Chloride 1,000 mls @ 75 mls/hr 01/21/18 14:45 01/22/18 16:06 D5-1/2ns - IV 75 mls/hr ASDIR ILEANA Administration Morphine Sulfate 4 mg 01/22/18 02:26 01/22/18 20:13 Morphine Sulfate IVPUSH 4 mg Q6H PRN Administration PAIN SCALE 6 - 10 Ondansetron HCl 4 mg 01/20/18 20:05 01/22/18 13:48 Zofran Injection IVPUSH 4 mg Q6H PRN Administration NAUSEA AND/OR VOMITING Oxycodone HCl 5 mg 01/20/18 11:37 01/20/18 23:29 Roxicodone - PO 5 mg Q4H PRN Administration PAIN LEVEL 1-5 Oxycodone HCl 10 mg 01/20/18 15:04 01/22/18 11:08 Roxicodone - PO 10 mg Q6H PRN Administration PAIN LEVEL 6-10 ASSESSMENT/PLAN: This is a 67 yo F with poor prior medical f/u and recently established PMH of HTN and irritable bowel disease, here POD 2 s/p robotic assisted incisional hernia repair and lysis of adhesions, who experienced sudden onset pleuritic cp this evening and found to be hypertensive 200 systolic. Hypertensive emergency with cp and EKG changes HTN IBS -BP now at goal s/p labetalol 160 systolic, no tachycardia -mild ekg changes: t inversion in anterior leads -asymptomatic at this time -PE risk f/u CTA -f/u trops, k, mag, phos -cardiac monitoring, continuous pulse ox -incentive spirometry Dispo: Patient is not an ICU candidate, however she requires a telemetry bed and none are available at this time. Nursing feed inspection supervisor has been contacted to free up a tele bed. In the event that this does not occur in a timely manner, patient will have to take and ICU bed. Problem List - Problems (1) Hypertensive emergency Code(s): I16.1 - HYPERTENSIVE EMERGENCY (2) Incisional hernia Code(s): K43.2 - INCISIONAL HERNIA WITHOUT OBSTRUCTION OR GANGRENE (3) HTN (hypertension) Code(s): I10 - ESSENTIAL (PRIMARY) HYPERTENSION (4) Left sided abdominal pain Code(s): R10.9 - UNSPECIFIED ABDOMINAL PAIN Visit type - Emergency Visit Emergency Visit: No - New Patient This patient is new to me today: Yes Date on this admission: 01/22/18 - Critical Care Critical Care patient: No
[2018-01-22 23:18] LABS: ALBUMIN 3.4 g/dl (3.4-5.0); ANION GAP 9 MMOL/L (8-16); BLOOD UREA NITROGEN 9 mg/dL (7-18); CALCIUM 8.4 mg/dL (8.5-10.1); CHLORIDE 101 mmol/L (98-107); CO2 27 mmol/L (21-32); CREATININE 0.6 mg/dL (0.55-1.3); GLUCOSE,RANDOM 111 mg/dL (74-106); MAGNESIUM 2.1 mg/dL (1.8-2.4); SGOT/AST 87 U/L (15-37); SGPT/ALT 86 U/L (13-61); SODIUM 137 mmol/L (136-145)
[2018-01-22 23:19] LABS: ALK PHOS 154 U/L (45-117)
--- NOTE | 2018-01-22 23:29 | PN ---
Progress Note, Physician - Current Medication List Current Medications: Active Medications Acetaminophen (Tylenol -) 650 mg PO Q6H PRN PRN Reason: PAIN LEVEL 1-5 Last Admin: 01/22/18 11:09 Dose: 650 mg Amlodipine Besylate (Norvasc -) 2.5 mg PO DAILY [facility] Docusate Sodium (Colace -) 100 mg PO TID [facility] Last Admin: 01/22/18 21:14 Dose: Not Given Heparin Sodium (Porcine) (Heparin -) 5,000 unit SQ BID [facility] Last Admin: 01/22/18 21:00 Dose: 5,000 unit Lactated Ringer's (Lactated Ringers Solution) 1,000 mls @ 125 mls/hr IV ASDIR [facility] Last Admin: 01/22/18 19:39 Dose: Not Given Dextrose/Sodium Chloride (D5-1/2ns -) 1,000 mls @ 75 mls/hr IV ASDIR [facility] Last Admin: 01/22/18 16:06 Dose: 75 mls/hr Morphine Sulfate (Morphine Sulfate) 4 mg IVPUSH Q6H PRN PRN Reason: PAIN SCALE 6 - 10 Last Admin: 01/22/18 20:13 Dose: 4 mg Ondansetron HCl (Zofran Injection) 4 mg IVPUSH Q6H PRN PRN Reason: NAUSEA AND/OR VOMITING Last Admin: 01/22/18 13:48 Dose: 4 mg Oxycodone HCl (Roxicodone -) 5 mg PO Q4H PRN PRN Reason: PAIN LEVEL 1-5 Last Admin: 01/20/18 23:29 Dose: 5 mg Oxycodone HCl (Roxicodone -) 10 mg PO Q6H PRN PRN Reason: PAIN LEVEL 6-10 Last Admin: 01/22/18 11:08 Dose: 10 mg - Objective Vital Signs: Vital Signs Temperature 98 F 01/22/18 21:26 Pulse Rate 94 H 01/22/18 21:26 Respiratory Rate 20 01/22/18 21:26 Blood Pressure 212/115 H 01/22/18 21:26 O2 Sat by Pulse Oximetry (%) 94 L 01/22/18 02:22 Labs: CBC, BMP 01/22/18 22:04
[2018-01-22 23:32] LABS: BASO % 0.2 % (0-2.0); EOS % 0.2 % (0-4.5); HEMATOCRIT 31.3 % (32.4-45.2); HEMOGLOBIN 10.4 GM/dL (10.7-15.3); LYMPH % 8.8 % (8-40); MCH 29.8 pg (25.7-33.7); MCHC 33.2 g/dl (32.0-36.0); MEAN CELL VOLUME 89.7 fl (80-96); MEAN PLT VOLUME 7.5 fl (7.5-11.1); NEUT % 86.8 % (42.8-82.8); PLATELET COUNT 275 K/MM3 (134-434); RBC 3.49 M/mm3 (3.60-5.2); RDW 14.2 % (11.6-15.6); WHITE BLOOD COUNT 11.8 K/mm3 (4.0-10.0)
[2018-01-22] MEDS: METOPROLOL TARTRATE 5 MG/5 ML VIAL IVPUSH SCH ×2 (23:37→23:39)
--- NOTE | 2018-01-23 00:12 | RAPID ---
Physical Examination Vital Signs: Vital Signs Temperature 98 F 01/22/18 21:26 Pulse Rate 97 H 01/22/18 23:39 Respiratory Rate 20 01/22/18 21:26 Blood Pressure 194/111 H 01/22/18 23:39 O2 Sat by Pulse Oximetry (%) 94 L 01/22/18 02:22 At approx 9:30pm asked to evaluate patient for report of right-sided chest pain and hypertension. Patient seen and evaluated. Complaining of right upper chest pain which started about one hour ago. Has never previously experienced. She describes pain as uncomfortable. Denies SOB, palpitations, lightheadedness. Denies previous cardiac history. Denies history of hypertension. Takes no meds at home. Patient's BP elevated earlier in day to SBP 160s, was given amlodipine 2.5mg x 1. Became acutely hypertensive 194/111 according to nursing staff at the same time patient complained of chest pain. ECG: mild ST depressions V4, V5, V6 not seen on pre-op ECG in chart BP 194/111-->194/106 Pulse 94-->78 Physical exam: A&Ox3, conversational, in no acute distress Lungs: CTA CV: S1, S2, RRR. Right upper chest pain reproducible on exam Abd: soft, not tender, not distended; surgical trochanter sites c/d/i Upper Ext: 2+ pulses, warm, well-perfused Lower Ext: 2+ pulses, warm, well-perfused, no edema, no calf tenderness Assessment and Plan Chest Pain Hypertensive Crisis r/o PE Pushed lopressor x 3 with improvement in BP 158/85 Labetolol PO 100mg x 1; losartan PO 25mg x 1 ECG done CXR Troponins x 3 cbc, bmp, Mg, LFTs Wells score moderate risk for PE; CTA done pending dictation Transfer to tele Labs: CBC, BMP 01/22/18 23:20 01/22/18 22:04
[2018-01-23] MEDS ORDERED: LABETALOL HCL 5 MG/1 ML (100MG/20 ML VIAL) IVPUSH PRN (00:28)
[2018-01-23] MEDS ORDERED: NITROGLYCERIN SUBLINGUAL 1/150 0.4 MG TAB SL PRN (04:16)
[2018-01-23] MEDS ORDERED: PIPERACILLIN/TAZOBACTAM 3.375 GM VIAL IVPB ONE (04:28)
[2018-01-23] MEDS ORDERED: DEXTROSE 5%-WATER - 50 ML IVPB ONE (04:28)
[2018-01-23] MEDS: PIPERACILLIN/TAZOB 3.375 GM 3.375 GM in DEXTROSE 5%-WATER - 50 ML IVPB SCH ×2 (05:09→12:41)
[2018-01-23] MEDS: DOCUSATE SODIUM 100 MG CAPSULE (FP) PO SCH ×3 (05:29→21:33)
[2018-01-23 06:54] LABS: BASO % 0.5 % (0-2.0); EOS % 0.3 % (0-4.5); HEMATOCRIT 29.5 % (32.4-45.2); HEMOGLOBIN 9.8 GM/dL (10.7-15.3); MCH 29.9 pg (25.7-33.7); MCHC 33.2 g/dl (32.0-36.0); MEAN CELL VOLUME 89.9 fl (80-96); MEAN PLT VOLUME 7.7 fl (7.5-11.1); MONO % 4.4 % (3.8-10.2); NEUT % 77.8 % (42.8-82.8); PLATELET COUNT 248 K/MM3 (134-434); RBC 3.28 M/mm3 (3.60-5.2); RDW 14.2 % (11.6-15.6); WHITE BLOOD COUNT 10.3 K/mm3 (4.0-10.0)
[2018-01-23 08:09] LABS: ALBUMIN 2.8 g/dl (3.4-5.0); ALK PHOS 143 U/L (45-117); ANION GAP 10 MMOL/L (8-16); BILIRUBIN,TOTAL 2.5 mg/dL (0.2-1); BLOOD UREA NITROGEN 9 mg/dL (7-18); CALCIUM 8.3 mg/dL (8.5-10.1); CHLORIDE 102 mmol/L (98-107); CO2 27 mmol/L (21-32); CREATININE 0.5 mg/dL (0.55-1.3); GLUCOSE,RANDOM 113 mg/dL (74-106); POTASSIUM 3.9 mmol/L (3.5-5.1); SGOT/AST 67 U/L (15-37); SGPT/ALT 79 U/L (13-61); SODIUM 139 mmol/L (136-145)
[2018-01-23] MEDS: LABETALOL HCL 100 MG TABLET (FP) PO SCH ×2 (09:57→21:33)
[2018-01-23] MEDS: ASPIRIN 81 MG CHEWABLE TABLETS PO SCH (09:57)
[2018-01-23] MEDS: HEPARIN NA (PORCINE) 5,000 UNITS/ML 1ML VIAL SQ SCH ×2 (09:57→21:33)
[2018-01-23] MEDS: amLODIPine BESYLATE 2.5 MG TABLET (FP) PO SCH (09:57)
--- NOTE | 2018-01-23 10:14 | EKG ---
Test Reason : Blood Pressure : / mmHG Vent. Rate : 077 BPM Atrial Rate : 077 BPM P-R Int : 146 ms QRS Dur : 082 ms QT Int : 414 ms P-R-T Axes : 066 003 021 degrees QTc Int : 468 ms NORMAL SINUS RHYTHM NORMAL ECG WHEN COMPARED WITH ECG OF 26-SEP-2014 15:37, NO SIGNIFICANT CHANGE WAS FOUND Confirmed by CRYS MARCUS MD ([id number]) on 01/23/2018 10:14:37 AM Referred By: Confirmed By:CRYS MARCUS MD
[2018-01-23] MEDS: LACTATED RINGERS SOLUTION 1,000 ML IV SCH (12:41)
--- NOTE | 2018-01-23 14:36 | CON.PULM ---
Consult Consult Specialty:: PULM/CCM Referred by:: SARAH Reason for Consultation:: Abnormal CT Chest - History of Present Illness Chief Complaint: abdominal pain History of Present Illness: 67 F, life long non-smoker, no previous history of PNA, HTN, irritable bowel disease, and apparent poor medical follow up. S/P robotic assisted incisional hernia repair and lysis of adhesions on 01/20. Admitted due to sudden onset pleuritic CP. She was also found to be hypertensive: 200 systolic. Not hypoxic or tachycardic. No fever or chills. No hemoptysis. Does not have a significant cough or sputum production. At present CP is resolved and she is not SOB. She does have post-incisional pain and obvious splinting with deep breathing. CTA: no PE, bibasilar atelectasis Right > Left / no masses or effusions - History Source History Provided By: Patient Limitations to Obtaining History: No Limitations - Past Medical History Cardio/Vascular: Yes: HTN Gastrointestinal: Yes: Irritable Bowel Disease (with alternating diarrhea and constipation) ...: No - Past Surgical History Past Surgical History: Yes: Cholecystectomy (Remote) - Alcohol/Substance Use Hx Alcohol Use: No - Smoking History Smoking history: Never smoked Have you smoked in the past 12 months: No Aproximately how many cigarettes per day: 0 - Social History ADL: Independent Home Medications - Allergies Allergies/Adverse Reactions: Allergies Allergy/AdvReac Type Severity Reaction Status Date / Time No Known Allergies Allergy Verified 01/20/18 06:57 - Home Medications Home Medications: Ambulatory Orders Aspirin [ASA -] 81 mg PO DAILY 01/16/18 Docusate Sodium [Colace] 100 mg PO BID #30 capsule 01/20/18 Oxycodone HCl/Acetaminophen [Percocet 5-325 mg Tablet] 1 tab PO Q6H PRN #16 tablet MDD 4 01/20/18 Review of Systems - Review of Systems Constitutional: denies: Chills, Fever, Night Sweats, Unintentional Wgt. Loss, Weakness Eyes: reports: No Symptoms HENT: reports: No Symptoms Neck: reports: No Symptoms Cardiovascular: reports: Chest Pain. denies: Edema, Palpitations, Shortness of Breath Respiratory: denies: Cough, Hemoptysis, Orthopnea, SOB, SOB on Exertion, Wheezing Gastrointestinal: reports: Abdominal Pain. denies: Constipation, Diarrhea, Dysphagia, Melena, Nausea, Rectal Bleeding, Vomiting, Vomiting Blood Genitourinary: reports: No Symptoms Breasts: reports: No Symptoms Reported Musculoskeletal: reports: No Symptoms Integumentary: reports: No Symptoms Neurological: reports: No Symptoms Endocrine: reports: No Symptoms Hematology/Lymphatic: reports: No Symptoms Psychiatric: reports: No Symptoms Physical Exam Vital Sings: Vital Signs Temperature 98.9 F 01/23/18 02:25 Pulse Rate 79 01/23/18 10:12 Respiratory Rate 20 01/23/18 10:12 Blood Pressure 144/68 01/23/18 10:12 O2 Sat by Pulse Oximetry (%) 98 01/23/18 08:19 Constitutional: Yes: No Distress, Obese Eyes: Yes: Conjunctiva Clear, EOM Intact HENT: Yes: Atraumatic, Normocephalic Neck: Yes: Supple, Trachea Midline Cardiovascular: Yes: Regular Rate and Rhythm Respiratory: Yes: CTA Bilaterally. No: Accessory Muscle Use, Cough, Rales, Rhonchi, SOB, SOB on Exertion, Tachypnea, Wheezes ...Clubbing: No Gastrointestinal: Yes: Normal Bowel Sounds, Soft, Abdomen, Obese, Tenderness. No: Tenderness, Rebound, Vomiting Renal/: Yes: WNL Musculoskeletal: Yes: WNL Extremities: Yes: WNL Edema: No Peripheral Pulses WNL: Yes Integumentary: Yes: WNL Neurological: Yes: WNL, Alert, Oriented ...Motor Strength: WNL Psychiatric: Yes: WNL, Alert, Oriented Labs: CBC, BMP 01/23/18 05:30 01/23/18 05:30 Imaging - Results Chest X-ray: Report Reviewed, Image Reviewed Cat Scan: Report Reviewed, Image Reviewed Problem List - Problems (1) Obesity Code(s): E66.9 - OBESITY, UNSPECIFIED (2) Atelectasis of both lungs Code(s): J98.11 - ATELECTASIS (3) Chest pain Code(s): R07.9 - CHEST PAIN, UNSPECIFIED (4) Incisional hernia Code(s): K43.2 - INCISIONAL HERNIA WITHOUT OBSTRUCTION OR GANGRENE (5) HTN (hypertension) Code(s): I10 - ESSENTIAL (PRIMARY) HYPERTENSION Assessment/Plan Do not suspect PNA Suspect ateletasis due to splinting from recent surgery Check urine Antigen Incentive Spirometry Q1hour O2 as needed VTE prophylaxis Titrate BP Meds Pain control Low threshold to D/C ABX coverage Will follow Thank you. Dr Kramer
--- NOTE | 2018-01-23 16:43 | ECHO ---
Name: VIVIAN ARAMBULA Exam:Adult Echocardiogram Study Date: 01/23/2018 02:58 PM Age: 67 yrs Reason For Study: Chest pain Height: 58 in Weight: 167 lb BSA: 1.7 m2 MMode/2D Measurements & Calculations IVSd: 0.82 cm Ao root diam: 3.3 cm LVIDd: 5.1 cm LA dimension: 3.5 cm LVIDs: 2.9 cm ACS: 1.8 cm LVPWd: 0.81 cm IVSs: 1.2 cm LVPWs: 1.1 cm EDV(Teich): 123.3 ml ESV(Teich): 31.7 ml Doppler Measurements & Calculations MV E max jimmy: 117.0 cm/sec Ao V2 max: 134.8 cm/sec MV A max jimmy: 95.3 cm/sec Ao max P.3 mmHg MV E/A: 1.2 Ao V2 mean: 100.9 cm/sec Ao mean P.4 mmHg Ao V2 VTI: 28.4 cm MR max jimmy: 412.2 cm/sec TR max jimmy: 263.7 cm/sec MR max P.2 mmHg TR max P.0 mmHg Med Peak E' Jimmy: 5.4 cm/sec Med E/e': 21.8 Lat Peak E' Jimmy: 6.7 cm/sec Lat E/e': 17.5 Procedure A complete two-dimensional transthoracic echocardiogram was performed (2D, M-mode, Doppler and color flow Doppler). Technically limited study. Left Ventricle The left ventricle is normal in size. Left ventricular systolic function is normal. Ejection Fraction = 65- 70%. Diastolic dysfunction, Grade II (pseudonormalization pattern). TDI reveals elevated filling pres sure (E/E'>20). No regional wall motion abnormalities noted. Right Ventricle The right ventricle is normal size. The right ventricular systolic function is normal. Atria The left atrial size is normal. Right atrial size is normal. Mitral Valve There is mild mitral annular calcification. There is mild to moderate mitral regurgitation. Tricuspid Valve The tricuspid valve is normal in structure and function. There is moderate tricuspid regurgitation. P ulmonary artery systolic pressure is at least 39 mmhg assuming RA pressure of 3 mmHg. Aortic Valve There is mild aortic sclerosis.;. No aortic regurgitation is present. Pulmonic Valve The pulmonic valve is not well visualized. Great Vessels The aortic root is normal size. Pericardium/Pleura There is no pericardial effusion. Interpretation Summary Technically limited study The left ventricle is normal in size. Left ventricular systolic function is normal. No regional wall motion abnormalities noted. Ejection Fraction = 65-70%. Diastolic dysfunction, Grade II (pseudonormalization pattern). TDI reveals elevated filling pressure (E/E'>20) The right ventricular systolic function is normal. The left atrial size is normal. Right atrial size is normal. There is mild mitral annular calcification. There is mild to moderate mitral regurgitation. There is moderate tricuspid regurgitation. Pulmonary artery systolic pressure is at least 39 mmhg assuming RA pressure of 3 mmHg There is mild aortic sclerosis. There is no pericardial effusion. Previous study is not available for comparison Miguel Angel Rosas MD 01/23/2018 04:43 PM
[2018-01-23] MEDS: DEXTROSE 5%-0.45% SALINE 1,000 ML IV SCH (17:35)
[2018-01-23] MEDS ORDERED: PIPERACILLIN/TAZOB 3.375 GM 3.375 GM in DEXTROSE 5%-WATER - 50 ML IVPB SCH (18:00)
[2018-01-23] MEDS: oxyCODONE HCL 5 MG TABLET PO PRN (20:19)
--- NOTE | 2018-01-23 21:40 | CON.CARD ---
Consult Consult Specialty:: Cardiology Referred by:: Ms. Conner NP Reason for Consultation:: Severe hypertension and chest pain - History of Present Illness Chief Complaint: Severe hypertension and chest pain History of Present Illness: 67 year-old woman with a PMHx of HTN, irritable bowel disease, s/p open cholecystecomy in remote past admitted 01/20/2018 for elective robotic assisted incisional hernia repair and lysis of adhesions. The patient had right upper pleuritic chest pain and severe hypertension post op. Chest pain resolved. BP control improved. Troponin is mildly elevated. ECG 01/23/18 was normal without ischemic changes. PE was ruled out by CTA on 01/23/2018. - History Source History Provided By: Patient, Medical Record Limitations to Obtaining History: No Limitations - Past Medical History Cardio/Vascular: Yes: HTN Gastrointestinal: Yes: Irritable Bowel Disease (with alternating diarrhea and constipation) ...: No - Past Surgical History Past Surgical History: Yes: Cholecystectomy (Remote) - Alcohol/Substance Use Hx Alcohol Use: No - Smoking History Smoking history: Never smoked Have you smoked in the past 12 months: No Aproximately how many cigarettes per day: 0 - Social History ADL: Independent Home Medications - Allergies Allergies/Adverse Reactions: Allergies Allergy/AdvReac Type Severity Reaction Status Date / Time No Known Allergies Allergy Verified 01/20/18 06:57 - Home Medications Home Medications: Ambulatory Orders Aspirin [ASA -] 81 mg PO DAILY 01/16/18 Docusate Sodium [Colace] 100 mg PO BID #30 capsule 01/20/18 Oxycodone HCl/Acetaminophen [Percocet 5-325 mg Tablet] 1 tab PO Q6H PRN #16 tablet MDD 4 01/20/18 Review of Systems - Review of Systems Constitutional: reports: No Symptoms Eyes: reports: No Symptoms HENT: reports: No Symptoms Neck: reports: No Symptoms Cardiovascular: reports: Chest Pain Respiratory: reports: No Symptoms Gastrointestinal: reports: Abdominal Pain Genitourinary: reports: No Symptoms Breasts: reports: No Symptoms Reported Musculoskeletal: reports: No Symptoms Integumentary: reports: No Symptoms Neurological: reports: No Symptoms - Risk Factors Known Risk Factors: Yes: Age, Hypertension Vital Signs: Vital Signs Temperature 98.9 F 01/23/18 02:25 Pulse Rate 77 01/23/18 14:00 Respiratory Rate 20 01/23/18 14:00 Blood Pressure 136/64 01/23/18 14:00 O2 Sat by Pulse Oximetry (%) 98 01/23/18 08:19 General: Well developed. Obese. No acute distress. Head: Normocephalic. Atraumatic, Eyes: PERRLA, EOMI. Sclerae anicteric. Conjunctivae clear. Neck: Supple. No JVD. No bruits. Heart: Normal S1, S2: Regular rhythm and rate. No murmur. No gallop or rub. Lungs: Symmetrical air entry. Clear to auscultation. No crackle. No wheezing or rhonchi. Abdomen: Distended. Soft. Bowel sound positive. Non tender. No masses. Extremities: No edema. No clubbing or cyanosis. PD 2+, equal bilaterally. - Other Data Labs, Other Data: CBC, BMP 01/23/18 05:30 01/23/18 05:30 Troponin, BNP 01/22/18 01/23/18 01/23/18 22:04 05:30 05:30 Troponin I 0.10 H 0.06 H Cancelled 01/23/18 01/23/18 05:30 09:53 Troponin I Cancelled 0.05 Troponin, BNP 01/22/18 01/23/18 01/23/18 22:04 05:30 05:30 Troponin I 0.10 H 0.06 H Cancelled 01/23/18 01/23/18 05:30 09:53 Troponin I Cancelled 0.05 Assessment/Plan 67 year-old woman with a PMHx of HTN, irritable bowel disease, s/p open cholecystecomy in remote past admitted 01/20/2018 for elective robotic assisted incisional hernia repair and lysis of adhesions. The patient had right upper pleuritic chest pain and severe hypertension post op. Chest pain resolved. BP control improved. Troponin is mildly elevated. ECG 01/23/18 was normal without ischemic changes. PE was ruled out by CTA on 01/23/2018. 1) Severe hypertension: BP control improved markedly on current regimen. -Would change Labetolol to metoprolol succinate 50 mg daily. -Increase amilodipine to 5 mg daily. -Monitor BP and HR. 2) Atypical pleuritic chest pain. Normal ECG. Troponin is mildly elevated. PE ruled out. May have underline CAD. Observation. No further cardiac test recommended at this time. Continue aspirin 81 mg daily. Start atorvastain 40 mg daily. Change Labetolol to metoprolol succinate 50 mg daily. We will follow with you.
--- NOTE | 2018-01-23 22:55 | PN ---
Progress Note, Physician History of Present Illness: No further chest pain - Current Medication List Current Medications: Active Medications Acetaminophen (Tylenol -) 650 mg PO Q6H PRN PRN Reason: PAIN LEVEL 1-5 Last Admin: 01/22/18 11:09 Dose: 650 mg Amlodipine Besylate (Norvasc -) 2.5 mg PO DAILY [facility] Last Admin: 01/23/18 09:57 Dose: 2.5 mg Aspirin (Asa -) 81 mg PO DAILY [facility] Last Admin: 01/23/18 09:57 Dose: 81 mg Docusate Sodium (Colace -) 100 mg PO TID [facility] Last Admin: 01/23/18 21:33 Dose: 100 mg Heparin Sodium (Porcine) (Heparin -) 5,000 unit SQ BID [facility] Last Admin: 01/23/18 21:33 Dose: 5,000 unit Lactated Ringer's (Lactated Ringers Solution) 1,000 mls @ 125 mls/hr IV ASDIR [facility] Last Admin: 01/23/18 12:41 Dose: Not Given Dextrose/Sodium Chloride (D5-1/2ns -) 1,000 mls @ 75 mls/hr IV ASDIR [facility] Last Admin: 01/23/18 17:35 Dose: Not Given Levofloxacin (Levaquin 750 Mg Premixed Ivpb -) 750 mg in 150 mls @ 150 mls/hr IVPB DAILY [facility]; Protocol Last Admin: 01/23/18 05:08 Dose: 150 mls/hr Piperacillin Sod/Tazobactam (Sod 3.375 gm/ Dextrose) 50 mls @ 100 mls/hr IVPB Q8H-IV ILEANA; Protocol Labetalol HCl (Normodyne -) 100 mg PO BID [facility] Last Admin: 01/23/18 21:33 Dose: 100 mg Labetalol HCl (Normodyne Injection -) 20 mg IVPUSH Q3H PRN PRN Reason: FOR SBP >180 OR DBP >100 Morphine Sulfate (Morphine Sulfate) 4 mg IVPUSH Q6H PRN PRN Reason: PAIN SCALE 6 - 10 Last Admin: 01/22/18 20:13 Dose: 4 mg Nitroglycerin (Nitrostat -) 0.4 mg SL Q5M PRN PRN Reason: FOR CHEST PAIN Last Admin: 01/23/18 05:30 Dose: 0.4 mg Ondansetron HCl (Zofran Injection) 4 mg IVPUSH Q6H PRN PRN Reason: NAUSEA AND/OR VOMITING Last Admin: 01/22/18 13:48 Dose: 4 mg Oxycodone HCl (Roxicodone -) 5 mg PO Q4H PRN PRN Reason: PAIN LEVEL 1-5 Last Admin: 01/20/18 23:29 Dose: 5 mg Oxycodone HCl (Roxicodone -) 10 mg PO Q6H PRN PRN Reason: PAIN LEVEL 6-10 Last Admin: 01/23/18 20:19 Dose: 10 mg - Objective Vital Signs: Vital Signs Temperature 98.9 F 01/23/18 02:25 Pulse Rate 77 01/23/18 14:00 Respiratory Rate 20 01/23/18 14:00 Blood Pressure 136/64 01/23/18 14:00 O2 Sat by Pulse Oximetry (%) 98 01/23/18 08:19 Neck: Yes: WNL, Supple Cardiovascular: Yes: WNL, Regular Rate and Rhythm Respiratory: Yes: WNL, Regular, CTA Bilaterally Gastrointestinal: Yes: WNL, Normal Bowel Sounds, Soft Labs: CBC, BMP 01/23/18 05:30 01/23/18 05:30 Problem List - Problems (1) Chest pain Assessment/Plan: Atypical chest pain CTA chest showed ?consolidation/atelectasis Encourage ambulation/Incentive spriometer WBC normal change to po antibxs in am Cardio consult noted Code(s): R07.9 - CHEST PAIN, UNSPECIFIED (2) HTN (hypertension) Assessment/Plan: BP improved Cont to adjust meds Code(s): I10 - ESSENTIAL (PRIMARY) HYPERTENSION (3) Elevated LFTs Assessment/Plan: Repeat LFTS in am Code(s): R94.5 - ABNORMAL RESULTS OF LIVER FUNCTION STUDIES (4) Incisional hernia Code(s): K43.2 - INCISIONAL HERNIA WITHOUT OBSTRUCTION OR GANGRENE
[2018-01-24] MEDS: DOCUSATE SODIUM 100 MG CAPSULE (FP) PO SCH ×3 (06:27→21:32)
[2018-01-24 06:52] LABS: BASO % 0.2 % (0-2.0); EOS % 0.9 % (0-4.5); HEMATOCRIT 26.5 % (32.4-45.2); MCH 30.3 pg (25.7-33.7); MCHC 33.8 g/dl (32.0-36.0); MEAN CELL VOLUME 89.6 fl (80-96); MEAN PLT VOLUME 7.6 fl (7.5-11.1); MONO % 4.7 % (3.8-10.2); NEUT % 73.2 % (42.8-82.8); PLATELET COUNT 255 K/MM3 (134-434); RBC 2.96 M/mm3 (3.60-5.2); RDW 14.1 % (11.6-15.6); WHITE BLOOD COUNT 9.2 K/mm3 (4.0-10.0)
[2018-01-24 07:19] LABS: ALBUMIN 2.5 g/dl (3.4-5.0); ALK PHOS 164 U/L (45-117); ANION GAP 7 MMOL/L (8-16); BILIRUBIN,TOTAL 1.7 mg/dL (0.2-1); BLOOD UREA NITROGEN 15 mg/dL (7-18); CALCIUM 7.9 mg/dL (8.5-10.1); CHLORIDE 102 mmol/L (98-107); CO2 29 mmol/L (21-32); CREATININE 0.6 mg/dL (0.55-1.3); GLUCOSE,RANDOM 88 mg/dL (74-106); POTASSIUM 3.9 mmol/L (3.5-5.1); SGOT/AST 62 U/L (15-37); SGPT/ALT 85 U/L (13-61); SODIUM 138 mmol/L (136-145); TOT PROT 5.6 g/dl (6.4-8.2)
[2018-01-24] MEDS: ACETAMINOPHEN 325 MG TABLET (FP) PO PRN ×3 (07:38→15:11)
[2018-01-24] MEDS: amLODIPine BESYLATE 2.5 MG TABLET (FP) PO SCH (09:11)
[2018-01-24] MEDS: ASPIRIN 81 MG CHEWABLE TABLETS PO SCH (09:11)
[2018-01-24] MEDS: HEPARIN NA (PORCINE) 5,000 UNITS/ML 1ML VIAL SQ SCH ×2 (09:11→21:32)
--- NOTE | 2018-01-24 10:22 | PN ---
Progress Note, Physician History of Present Illness: pulmonary alert,no distress,oob-chair,-cp,-sob - Current Medication List Current Medications: Active Medications Acetaminophen (Tylenol -) 650 mg PO Q6H PRN PRN Reason: PAIN LEVEL 1-5 Last Admin: 01/24/18 07:38 Dose: 650 mg Amlodipine Besylate (Norvasc -) 2.5 mg PO DAILY [facility] Last Admin: 01/24/18 09:11 Dose: 2.5 mg Aspirin (Asa -) 81 mg PO DAILY [facility] Last Admin: 01/24/18 09:11 Dose: 81 mg Docusate Sodium (Colace -) 100 mg PO TID [facility] Last Admin: 01/24/18 06:27 Dose: 100 mg Heparin Sodium (Porcine) (Heparin -) 5,000 unit SQ BID [facility] Last Admin: 01/24/18 09:11 Dose: 5,000 unit Labetalol HCl (Normodyne Injection -) 20 mg IVPUSH Q3H PRN PRN Reason: FOR SBP >180 OR DBP >100 Metoprolol Succinate (Toprol Xl -) 50 mg PO DAILY [facility] Last Admin: 01/24/18 09:11 Dose: 50 mg Nitroglycerin (Nitrostat -) 0.4 mg SL Q5M PRN PRN Reason: FOR CHEST PAIN Last Admin: 01/23/18 05:30 Dose: 0.4 mg Ondansetron HCl (Zofran Injection) 4 mg IVPUSH Q6H PRN PRN Reason: NAUSEA AND/OR VOMITING Last Admin: 01/22/18 13:48 Dose: 4 mg - Objective Vital Signs: Vital Signs Temperature 98.3 F 01/24/18 06:00 Pulse Rate 80 01/24/18 06:00 Respiratory Rate 20 01/24/18 06:00 Blood Pressure 138/74 01/24/18 06:00 O2 Sat by Pulse Oximetry (%) 97 01/24/18 06:00 Constitutional: Yes: Well Nourished, Calm Eyes: Yes: WNL HENT: Yes: WNL Neck: Yes: WNL Cardiovascular: Yes: Regular Rate and Rhythm, S1, S2 Respiratory: Yes: CTA Bilaterally Gastrointestinal: Yes: Normal Bowel Sounds, Soft Extremities: Yes: WNL Edema: No Labs: CBC, BMP 01/24/18 05:30 01/24/18 05:30 Assessment/Plan Problem List - Problems (1) Obesity Code(s): E66.9 - OBESITY, UNSPECIFIED (2) Atelectasis of both lungs Code(s): J98.11 - ATELECTASIS (3) Chest pain Code(s): R07.9 - CHEST PAIN, UNSPECIFIED (4) Incisional hernia Code(s): K43.2 - INCISIONAL HERNIA WITHOUT OBSTRUCTION OR GANGRENE (5) HTN (hypertension) Code(s): I10 - ESSENTIAL (PRIMARY) HYPERTENSION Assessment/Plan Suspect ateletasis due to splinting from recent surgery Incentive Spirometry Q1hour O2 as needed VTE prophylaxis Titrate BP Meds Pain control DR GONZALES
--- NOTE | 2018-01-24 10:28 | PN ---
Progress Note, Physician History of Present Illness: seen and examined today in nad. continued abdominal discomfort from surgery. intermittent throat pain for years which she states occurs when swallowing. - Current Medication List Current Medications: Active Medications Acetaminophen (Tylenol -) 650 mg PO Q6H PRN PRN Reason: PAIN LEVEL 1-5 Last Admin: 01/24/18 07:38 Dose: 650 mg Amlodipine Besylate (Norvasc -) 2.5 mg PO DAILY [facility] Last Admin: 01/24/18 09:11 Dose: 2.5 mg Aspirin (Asa -) 81 mg PO DAILY [facility] Last Admin: 01/24/18 09:11 Dose: 81 mg Docusate Sodium (Colace -) 100 mg PO TID [facility] Last Admin: 01/24/18 06:27 Dose: 100 mg Heparin Sodium (Porcine) (Heparin -) 5,000 unit SQ BID [facility] Last Admin: 01/24/18 09:11 Dose: 5,000 unit Labetalol HCl (Normodyne Injection -) 20 mg IVPUSH Q3H PRN PRN Reason: FOR SBP >180 OR DBP >100 Metoprolol Succinate (Toprol Xl -) 50 mg PO DAILY [facility] Last Admin: 01/24/18 09:11 Dose: 50 mg Nitroglycerin (Nitrostat -) 0.4 mg SL Q5M PRN PRN Reason: FOR CHEST PAIN Last Admin: 01/23/18 05:30 Dose: 0.4 mg Ondansetron HCl (Zofran Injection) 4 mg IVPUSH Q6H PRN PRN Reason: NAUSEA AND/OR VOMITING Last Admin: 01/22/18 13:48 Dose: 4 mg - Objective Vital Signs: Vital Signs Temperature 98.3 F 01/24/18 06:00 Pulse Rate 80 01/24/18 06:00 Respiratory Rate 20 01/24/18 06:00 Blood Pressure 138/74 01/24/18 06:00 O2 Sat by Pulse Oximetry (%) 97 01/24/18 06:00 Constitutional: Yes: No Distress, Calm Eyes: Yes: Conjunctiva Clear, EOM Intact HENT: Yes: Atraumatic, Normocephalic Neck: Yes: Supple, Trachea Midline Cardiovascular: Yes: Regular Rate and Rhythm, S1, S2. No: Bradycardia, Tachycardia, Pulse Irregular, Bruit, JVD, Gallop, Murmur, Rub, S3, S4, Varicosities Respiratory: Yes: Regular, CTA Bilaterally. No: Rales, Rhonchi, Wheezes Gastrointestinal: Yes: Normal Bowel Sounds, Soft, Tenderness Extremities: Yes: WNL Edema: No Peripheral Pulses WNL: Yes Peripheral Pulses: Left Doralis Pedis: 2+, Right Dorsalis Pedis: 2+ Neurological: Yes: Alert, Oriented Psychiatric: Yes: Alert, Oriented Labs: CBC, BMP 01/24/18 05:30 01/24/18 05:30 - ....Imaging Chest X-ray: Report Reviewed, Image Reviewed EKG: Report Reviewed, Image Reviewed Other: Report Reviewed, Image Reviewed (tele-nsr, no sig arrhythmias recorded) Assessment/Plan 67 year-old woman with a PMHx of HTN, irritable bowel disease, s/p open cholecystecomy in remote past admitted 01/20/2018 for elective robotic assisted incisional hernia repair and lysis of adhesions. The patient had right upper pleuritic chest pain and severe hypertension post op. Chest pain resolved. BP control improved. Troponin is mildly elevated. ECG 01/23/18 was normal without ischemic changes. PE was ruled out by CTA on 01/23/2018. 1) Severe hypertension: BP now adequately controlled on current regimen. -cont metoprolol succinate 50 mg daily. -cont amilodipine to 5 mg daily. -close outpatient fup of HTN 2) Atypical chest pain. -describes throat pain with swallowing -Normal ECG. -Troponin was mildly elevated but trended back to normal quickly in setting of severe uncontrolled HTN, possible demand ischemia, May have underline CAD. -PE ruled out. -echo 01/23/18 showed normal LV systolic function, state II diastolic dysfunction, mild to mod MR, mod TR, mild PAH, no pericardial effusion -further ischemic work up can be considered as an outpatient -Cont aspirin 81 mg daily. -Start atorvastain 40 mg daily if LFTs stable and safe to do so -cont metoprolol succinate 50 mg daily. No additional inpatient cardiac work up is needed at this time. [facility] outpatient follow up for further cardiac work up as needed Please call with any additional questions.
[2018-01-24] MEDS ORDERED: SODIUM PHOSPHATE/NA BIPHOS 133 ML ENEMA RC ONE (12:15)
--- NOTE | 2018-01-24 13:02 | EKG ---
Test Reason : Blood Pressure : / mmHG Vent. Rate : 098 BPM Atrial Rate : 098 BPM P-R Int : 126 ms QRS Dur : 074 ms QT Int : 354 ms P-R-T Axes : 069 009 045 degrees QTc Int : 451 ms NORMAL SINUS RHYTHM NONSPECIFIC ST AND T WAVE ABNORMALITY ABNORMAL ECG WHEN COMPARED WITH ECG OF 26-SEP-2014 15:37, NONSPECIFIC T WAVE ABNORMALITY NOW EVIDENT IN ANTERIOR LEADS Confirmed by MD NABEEL, REJI ([id number]) on 01/24/2018 1:02:06 PM Referred By: Confirmed By:REJI LEES MD
--- NOTE | 2018-01-24 22:22 | PN ---
Progress Note, Physician - Current Medication List Current Medications: Active Medications Acetaminophen (Tylenol -) 650 mg PO Q6H PRN PRN Reason: PAIN LEVEL 1-5 Last Admin: 01/24/18 15:11 Dose: 650 mg Amlodipine Besylate (Norvasc -) 2.5 mg PO DAILY [facility] Last Admin: 01/24/18 09:11 Dose: 2.5 mg Aspirin (Asa -) 81 mg PO DAILY [facility] Last Admin: 01/24/18 09:11 Dose: 81 mg Docusate Sodium (Colace -) 100 mg PO TID [facility] Last Admin: 01/24/18 21:32 Dose: 100 mg Heparin Sodium (Porcine) (Heparin -) 5,000 unit SQ BID [facility] Last Admin: 01/24/18 21:32 Dose: 5,000 unit Labetalol HCl (Normodyne Injection -) 20 mg IVPUSH Q3H PRN PRN Reason: FOR SBP >180 OR DBP >100 Metoprolol Succinate (Toprol Xl -) 50 mg PO DAILY [facility] Last Admin: 01/24/18 09:11 Dose: 50 mg Nitroglycerin (Nitrostat -) 0.4 mg SL Q5M PRN PRN Reason: FOR CHEST PAIN Last Admin: 01/23/18 05:30 Dose: 0.4 mg Ondansetron HCl (Zofran Injection) 4 mg IVPUSH Q6H PRN PRN Reason: NAUSEA AND/OR VOMITING Last Admin: 01/22/18 13:48 Dose: 4 mg - Objective Vital Signs: Vital Signs Temperature 98.8 F 01/24/18 22:00 Pulse Rate 80 01/24/18 22:00 Respiratory Rate 20 01/24/18 22:00 Blood Pressure 130/62 01/24/18 22:00 O2 Sat by Pulse Oximetry (%) 100 01/24/18 21:00 Labs: CBC, BMP 01/24/18 05:30 01/24/18 05:30 Problem List - Problems (1) Chest pain Code(s): R07.9 - CHEST PAIN, UNSPECIFIED (2) HTN (hypertension) Code(s): I10 - ESSENTIAL (PRIMARY) HYPERTENSION (3) Elevated LFTs Code(s): R94.5 - ABNORMAL RESULTS OF LIVER FUNCTION STUDIES (4) Incisional hernia Code(s): K43.2 - INCISIONAL HERNIA WITHOUT OBSTRUCTION OR GANGRENE
[2018-01-24] MEDS ORDERED: SENNOSIDES 8.6MG TABLET (FP) PO PRN (22:33)
[2018-01-25] MEDS: ACETAMINOPHEN 325 MG TABLET (FP) PO PRN (03:52)
[2018-01-25] MEDS: DOCUSATE SODIUM 100 MG CAPSULE (FP) PO SCH ×2 (05:39→13:23)
[2018-01-25] MEDS: HEPARIN NA (PORCINE) 5,000 UNITS/ML 1ML VIAL SQ SCH (09:12)
[2018-01-25] MEDS: ASPIRIN 81 MG CHEWABLE TABLETS PO SCH (09:12)
[2018-01-25] MEDS: amLODIPine BESYLATE 2.5 MG TABLET (FP) PO SCH (09:12)
[2018-01-25] MEDS ORDERED: POLYETHYLENE GLYCOL 3350 119 GM BTL PO SCH (10:00)
[2018-01-25 12:52] VITALS: BMI 34.9
[2018-01-25 16:07] VITALS: BP 135/72; PULSE 161; TEMP 98.5
== END 2018-01-25 17:56 | disposition home or self-care (01) | DRG 336 ==
LOC: JASUSAT 06:21 → J8W 17:10 → JASUSAT 17:10 → J8W 18:02 → JASUSAT 01-22 02:22 → J8W 01-22 02:22 → J4W 01-23 00:42
PROVIDERS: ADMIT Internal Medicine; ATTEND Internal Medicine
PROC: 0WUF4JZ Supplement Abdominal Wall with Synthetic Substitute, Percutaneous Endoscopic Approach (ICD-10-PCS; 2018-01-20)
PROC: 0DNW4ZZ Release Peritoneum, Percutaneous Endoscopic Approach (ICD-10-PCS; principal; 2018-01-20 08:00)
DX: K43.0 Incisional hernia with obstruction, without gangrene (principal); I16.1 Hypertensive emergency; J98.11 Atelectasis; K66.0 Peritoneal adhesions (postprocedural) (postinfection); I10 Essential (primary) hypertension; R11.0 Nausea; R07.89 Other chest pain; E66.9 Obesity, unspecified; Z68.34 Body mass index [BMI] 34.0-34.9, adult
CPT/HCPCS: 36415; 71045-TC-FY; 71275-TC; 80048; 80053; 80076; 82550; 82553; 83735; 84484; 85025; 85730; 87899; 93005; 93010; 93306-TC; 94760; J0131; J1644

== ENCOUNTER 2019-11-07 14:57 | Observation (INO) | payer OTHER ==
[2019-11-07 15:03] VITALS: BMI 35.5
--- NOTE | 2019-11-07 15:03 | PDOC ---
Rapid Medical Evaluation Chief Complaint: Lightheaded Time Seen by Provider: 11/07/19 14:59 Medical Evaluation: Allergies Allergy/AdvReac Type Severity Reaction Status Date / Time No Known Allergies Allergy Verified 01/20/18 06:57 11/07/19 14:59 Pt presents for evaluation of dizziness started 4 days ago. States she also has intermittent numbness to the hands but is currently asymptomatic. Sent by for work up Exam: No gross neuro deficit Orders: labs, EKG Pt proceeds to the ER for further evaluation Discharge Disposition - Diagnosis Lightheaded - Referrals - Patient Instructions - Post Discharge Activity
[2019-11-07 15:34] LABS: BASO % 0.6 % (0-2.0); EOS % 0.8 % (0-4.5); HEMOGLOBIN 12.5 GM/dL (10.7-15.3); LYMPH % 29.7 % (8-40); MCH 29.8 pg (25.7-33.7); MCHC 32.9 g/dl (32.0-36.0); MEAN CELL VOLUME 90.7 fl (80-96); MEAN PLT VOLUME 7.3 fl (7.5-11.1); MONO % 5.6 % (3.8-10.2); NEUT % 63.3 % (42.8-82.8); PLATELET COUNT 339 K/MM3 (134-434); RBC 4.19 M/mm3 (3.60-5.2); WHITE BLOOD COUNT 8.6 K/mm3 (4.0-10.0)
--- NOTE | 2019-11-07 15:35 | PDOC ---
History of Present Illness - General Chief Complaint: Lightheaded Stated Complaint: SENT BY PCP/DIZZINESS Time Seen by Provider: 11/07/19 14:59 Past History - Medical History Allergies/Adverse Reactions: Allergies Allergy/AdvReac Type Severity Reaction Status Date / Time No Known Allergies Allergy Verified 11/07/19 15:31 Home Medications: Ambulatory Orders Aspirin [ASA -] 81 mg PO DAILY 01/16/18 Docusate Sodium [Colace] 100 mg PO BID #30 capsule 01/20/18 Oxycodone HCl/Acetaminophen [Percocet 5-325 mg Tablet] 1 tab PO Q6H PRN #16 tablet MDD 4 01/20/18 Aspirin [ASA -] 81 mg PO DAILY #30 tab.chew 01/25/18 Docusate Sodium [Colace -] 100 mg PO TID #90 capsule 01/25/18 Metoprolol Succinate [Toprol XL -] 50 mg PO DAILY #30 tab.sr.24h 01/25/18 Polyethylene Glycol 3350 [Miralax 119 gm Btl -] 17 gm PO DAILY #1 bottle 01/25/18 Anemia: No Asthma: No Cancer: No Cardiac Disorders: No COPD: No HTN: Yes (possibly borderline,not on meds) - Surgical History Abdominal Surgery: Yes Cholecystectomy: Yes Gastric Stapling: No GI Surgery: No - Immunization History Immunization Up to Date: Yes - Psycho-Social/Smoking History Smoking Status: No Smoking History: Never smoked Have you smoked in the past 12 months: No Number of Cigarettes Smoked Daily: 0 - Substance Abuse Hx (Audit-C & DAST Scrn) How often the patient has a drink containing alcohol: Never Score: In Men: 4 or > Positive; In Women: 3 or > Positive: 0 Screen Result (Pos requires Nsg. Audit-10AR): Negative *Physical Exam - Vital Signs Last Vital Signs Temp Pulse Resp BP Pulse Ox 97 F L 86 18 192/87 H 100 11/07/19 14:58 11/07/19 14:58 11/07/19 14:58 11/07/19 14:58 11/07/19 14:58 ED Treatment Course - LABORATORY CBC & Chemistry Diagram: 11/07/19 15:16 11/07/19 15:16 - ADDITIONAL ORDERS Additional order review: 11/07/19 15:16 RBC 4.19 MCV 90.7 MCHC 32.9 RDW 14.0 MPV 7.3 L Neutrophils % 63.3 Lymphocytes % 29.7 D Monocytes % 5.6 Eosinophils % 0.8 Basophils % 0.6 Medical Decision Making - Medical Decision Making 11/07/19 16:13 68yo F hx HTN (per chart, pt denies, no meds) and BPPV (years ago, not on medicine) presents from home c/o intermittent episodes of nausea, dizziness (like room spinning, "wooziness"), and RUE tingling since Tuesday. Episodes worse with movement, last a few minutes, resolve on own, similar to prior episodes of vertigo except prior episodes did not include tingling. Pt states tingling started in R hand moved up then down R arm, temporarily included L hand, and no only involve R hand again. Pt believes tingling happens at same time as vertigo episodes, but seems uncertain. Hasn't eaten today yet. Endorses painting with lasex paint in rkdd-abueh-ljg room x 9 days, but sx don't change when inside vs outside. Using roller with R hand to paint so R hand more sore. Endorses back pain a few days ago that resolved with aleve. Denies numbness, weakness, difficulty walking, difficulty talking, facial droop, trauma, fall, neck pain, hx stroke, vision changes, syncope, headache, F/C, vomiting, D/C, CP, SOB, COVID, confusion. PCP - Valerio Rios, hasn't been in "long time" ROS: Constitutional: Negative for chills, fever, fatigue, diaphoresis. HENT: Negative for sore throat, rhinorrhea, congestion. Eyes: Negative for visual disturbance. Respiratory: Negative for shortness of breath, cough, and wheezing. Cardiovascular: Negative for chest pain, palpitations, and leg swelling. Gastrointestinal: Positive for nausea. Negative for abdominal pain, blood in sto ol, constipation, diarrhea, and vomiting. Genitourinary: Negative for dysuria, flank pain, and hematuria. Musculoskeletal: Positive for back pain. Negative for myalgias and neck pain. Skin: Negative for rash. Neurological: Positive for vertigo, "wooziness", tingling. Negative for syncope, weakness, numbness and headaches. Psychiatric/Behavioral: Negative for behavioral problems and confusion. PE: Gen: Alert, NAD, comfortable-appearing. HEENT: PERRL, EOMI, MMM, NCAT. No conjunctival pallor. Sclera are non-icteric.. CV: Regular rate and rhythm. No murmurs, rubs, or gallops. PULM: No resp distress. CTAB, no wheezes, rales, or rhonchi. ABD: soft, NT/ND, no rebound tenderness or guarding, no CVA tenderness. BACK: No TTP of c/t/l-spine. No step-offs or deformities. MSK: No bony deformities. 2+ pulses in all extremities. NEURO: AAOx3. PERRL. CN 2-12 intact. 5/5 strength in all extremities. Sensation to light touch intact in all extremities including R hand/RUE in all nerve distributions. No pronator drift. No dysmetria. No dysdiadochokinesia. No abnormal nystagmus. Slowed unsteady gait and heel-to-toe gait. EXTREMITIES: No cyanosis. No clubbing. No edema. No calf tenderness. PSYCH: Normal mood and thought pattern. SKIN: Warm and dry. Normal capillary refill. No rashes. No jaundice. MDM: 68yo F hx HTN (per chart, pt denies, no meds) and BPPV (years ago, not on medicine) presents from home c/o intermittent episodes of nausea, dizziness (like room spinning), and RUE tingling since Tuesday. Hypertensive, hemodynamically stable, afebrile, slowed unsteady gait and heel-to-toe gait but otherwise neurologically intact. Ddx: peripheral vs central vertigo (HINTS exam not applicable to lack of nystagmus), BPPV, stroke, ACS/ND, metabolic derangement, anemia, infection, thyroid pathology, arrhythmia -EKG -CXR -CTH -CBC,CMP,Cardiac profile,Coags,TSH,UA/UC,HbA1c -Meclizine -Dispo: pending workup and reassessment, likely d/c home 11/07/19 16:30 CTH reviewed - no acute pathology, no significant change compared to 2014 EKG reviewed: sinus rhythm with PVCs, 80bpm, normal intervals, normal axis, no e/o acute ischemia 11/07/19 16:52 Labs reviewed. No concerning findings. CXR reviewed: No acute pathology Pt feeling much better s/p meclizine, vertigo resolved, tingling of fingers sti ll slightly there, gait improved but pt still feels unsteady. Consult Neurology Dr Castaneda - call placed Admit 11/07/19 18:[address] Castaneda: most likely peripheral, but due to fall risk, understands admission. Recommends fluids, meclizine, MRI w/o contrast brain. If pt feels better and can ambulate without difficult, Dr Castaneda feels comfortable letting her go home. 11/07/19 18:[address] Reddy on phone - admitted to stroke unit Discharge - Discharge Information Problems reviewed: Yes Clinical Impression/Diagnosis: Lightheaded, Ataxia, Tingling of right upper extremity Condition: Stable - Admission Yes - Follow up/Referral Referrals: Ling Rios [Primary Care Provider] - - Patient Discharge Instructions - Post Discharge Activity
[2019-11-07 15:47] LABS: INR 1.13 (0.83-1.09); PROTHROMBIN TIME (PATIENT) 13.3 SEC (9.7-13.0)
[2019-11-07] MEDS ORDERED: MECLIZINE HCL 25 MG TABLET (FP) PO ONE (15:50)
[2019-11-07] MEDS ORDERED: MECLIZINE HCL 25 MG TABLET (FP) ONE (16:12)
[2019-11-07 16:48] LABS: ALBUMIN 3.7 g/dl (3.4-5.0); ALK PHOS 117 U/L (45-117); ANION GAP 8 MMOL/L (8-16); BILIRUBIN,TOTAL 0.4 mg/dL (0.2-1); BLOOD UREA NITROGEN 12.7 mg/dL (7-18); CALCIUM 9.1 mg/dL (8.5-10.1); CHLORIDE 109 mmol/L (98-107); CO2 26 mmol/L (21-32); CREATININE 0.7 mg/dL (0.55-1.3); GLUCOSE,RANDOM 95 mg/dL (74-106); POTASSIUM 4.5 mmol/L (3.5-5.1); SGOT/AST 18 U/L (15-37); SGPT/ALT 19 U/L (13-61); SODIUM 142 mmol/L (136-145); TOT PROT 7.4 g/dl (6.4-8.2)
--- NOTE | 2019-11-07 16:59 | PDOC ---
Documentation entered by Ventura Anne SCRIBE, acting as scribe for Kilo Bob MD. Kilo Bob MD: This documentation has been prepared by the Omid carmona Angel, SCRIBE, under my direction and personally reviewed by me in its entirety. I confirm that the documentation accurately reflects all work, treatment, procedures, and medical decision making performed by me. Attending Attestation - Resident Resident Name: Caitlin Molina - ED Attending Attestation I have performed the following: I have examined & evaluated the patient, The case was reviewed & discussed with the resident, I agree w/resident's findings & plan, Exceptions are as noted - HPI HPI: 11/07/19 16:49 The patient is a 68 year old female with a significant past medical history of HTN and BPPV who presents to the ED with intermittent episodes of nausea, dizziness and RUE tingling since Tuesday. The patient states the episodes are worse with movement, lasting a few minutes and then resolves on its own. The patient states these episodes are similar to prior episodes of vertigo other than the tingling. The patient denies weakness in either extremity. - Physicial Exam PE: 11/07/19 17:04 See resident exam - Medical Decision Making 11/07/19 17:04 68 F with dizziness. Ataxic on exam. Peripheral vertigo vs CVA. - Labs - CT head - Neuro c/s - Meclizine Discharge - Discharge Information Problems reviewed: Yes Clinical Impression/Diagnosis: Lightheaded, Ataxia, Tingling of right upper extremity Condition: Good Disposition: HOME - Follow up/Referral - Patient Discharge Instructions - Post Discharge Activity
[2019-11-07] MEDS ORDERED: SODIUM CHLORIDE 0.9% 500 ML INFUS.BAG IV ONE (18:03)
[2019-11-07] MEDS ORDERED: MECLIZINE HCL 12.5 MG TABLET PO PRN (20:00)
[2019-11-07 22:10] LABS: EPI CELLS 30 /uL (0-25.1); HYALINE CASTS 2 /uL (0-3.1); URINE APPEARANCE CLEAR; URINE BACTERIA 564 /uL (0-1359); URINE BILIRUBIN NEGATIVE (NEGATIVE); URINE COLOR YELLOW; URINE GLUCOSE (UA) NEGATIVE (NEGATIVE); URINE KETONE NEGATIVE (NEGATIVE); URINE LEUK ESTERASE 1+ (NEGATIVE); URINE NITRITE NEGATIVE (NEGATIVE); URINE PROTEIN NEGATIVE (NEGATIVE); URINE RBC 17 /uL (0-23.9); URINE WBC 78 /uL (0-25.8)
[2019-11-07] MEDS ORDERED: amLODIPine BESYLATE 2.5 MG TABLET (FP) PO ONE (23:29)
--- NOTE | 2019-11-08 07:11 | CON.CARD ---
Consult Consult Specialty:: cardiology - History of Present Illness History of Present Illness: Ms. Ayala is a 68 year old white woman with a past medical history of HTN and BPPV who presents to the ED with intermittent episodes of nausea, dizziness and RUE tingling since Tuesday. The patient states the episodes are worse with movement, lasting a few minutes and then resolves on its own. The patient states these episodes are similar to prior episodes of vertigo other than the tingling. The patient denies weakness in either extremity Episodes worse with movement, last a few minutes, resolve on own, similar to prior episodes of vertigo except prior episodes did not include tingling. Pt states tingling started in R hand moved up then down R arm, temporarily included L hand, and no only involve R hand again. Pt believes tingling happens at same time as vertigo episodes, but seems uncertain. Hasn't eaten today yet. Endorses painting with lasex paint in rfur-yvjro-ylp room x 9 days, but sx don't change when inside vs outside. Using roller with R hand to paint so R hand more sore. Endorses back pain a few days ago that resolved with aleve. Denies numbness, weakness, difficulty walking, difficulty talking, facial droop, trauma, fall, neck pain, hx stroke, vision changes, syncope, headache, F/C, vomiting, D/C, CP, SOB, COVID, confusion. PCP - Valerio Rios, hasn't been in "long time" - History Source History Provided By: Patient, Medical Record Limitations to Obtaining History: Poor Historian - Past Medical History Cardio/Vascular: Yes: HTN Gastrointestinal: Yes: Irritable Bowel Disease (with alternating diarrhea and constipation) Reproductive: Yes: Postmenopausal ...: No - Past Surgical History Past Surgical History: Yes: Cholecystectomy (Remote) - Alcohol/Substance Use Hx Alcohol Use: No - Smoking History Smoking history: Never smoked Have you smoked in the past 12 months: No Aproximately how many cigarettes per day: 0 - Social History ADL: Independent Home Medications - Allergies Allergies/Adverse Reactions: Allergies Allergy/AdvReac Type Severity Reaction Status Date / Time No Known Allergies Allergy Verified 11/07/19 15:31 - Home Medications Home Medications: Ambulatory Orders Aspirin [ASA -] 81 mg PO DAILY 01/16/18 Docusate Sodium [Colace] 100 mg PO BID #30 capsule 01/20/18 Oxycodone HCl/Acetaminophen [Percocet 5-325 mg Tablet] 1 tab PO Q6H PRN #16 t ablet MDD 4 01/20/18 Aspirin [ASA -] 81 mg PO DAILY #30 tab.chew 01/25/18 Docusate Sodium [Colace -] 100 mg PO TID #90 capsule 01/25/18 Metoprolol Succinate [Toprol XL -] 50 mg PO DAILY #30 tab.sr.24h 01/25/18 Polyethylene Glycol 3350 [Miralax 119 gm Btl -] 17 gm PO DAILY #1 bottle 01/25/18 Vital Signs: Vital Signs Temperature 97.6 F 11/08/19 02:00 Pulse Rate 74 11/08/19 02:00 Respiratory Rate 19 11/08/19 02:00 Blood Pressure 151/69 11/08/19 02:00 O2 Sat by Pulse Oximetry (%) 98 11/07/19 22:00 - Other Data Labs, Other Data: CBC, BMP 11/07/19 15:16 11/07/19 15:16 INR, PTT INR 1.13 (0.83-1.09) H 11/07/19 15:16 Troponin, BNP 11/07/19 11/07/19 15:16 23:55 Troponin I < 0.02 < 0.02 Troponin, BNP 11/07/19 11/07/19 15:16 23:55 Troponin I < 0.02 < 0.02 Assessment/Plan CVA (MRI head: "very small chronic right cerebellar infarct") 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 Plan on coronary artery evaluation (e.g. stress test) if not done recently; may be able to do as outpatient.
[2019-11-08 08:12] LABS: BASO % 0.5 % (0-2.0); EOS % 2.1 % (0-4.5); HEMATOCRIT 36.4 % (32.4-45.2); HEMOGLOBIN 11.9 GM/dL (10.7-15.3); LYMPH % 37.6 % (8-40); MCH 29.5 pg (25.7-33.7); MCHC 32.7 g/dl (32.0-36.0); MEAN CELL VOLUME 90.2 fl (80-96); MEAN PLT VOLUME 7.3 fl (7.5-11.1); MONO % 6.2 % (3.8-10.2); NEUT % 53.6 % (42.8-82.8); PLATELET COUNT 308 K/MM3 (134-434); RBC 4.04 M/mm3 (3.60-5.2); RDW 14.2 % (11.6-15.6); WHITE BLOOD COUNT 7.2 K/mm3 (4.0-10.0)
[2019-11-08 08:26] LABS: ALBUMIN 3.2 g/dl (3.4-5.0); BLOOD UREA NITROGEN 17.3 mg/dL (7-18); CALCIUM 8.9 mg/dL (8.5-10.1); CREATININE 0.7 mg/dL (0.55-1.3); POTASSIUM 3.7 mmol/L (3.5-5.1)
[2019-11-08 08:29] LABS: BILIRUBIN,TOTAL 0.4 mg/dL (0.2-1); TOT PROT 6.6 g/dl (6.4-8.2)
[2019-11-08] MEDS: DOCUSATE SODIUM 100 MG CAPSULE (FP) PO SCH ×2 (09:57→22:00)
[2019-11-08] MEDS: ASPIRIN 81 MG CHEWABLE TABLETS PO SCH (09:57)
[2019-11-08] MEDS: HEPARIN NA (PORCINE) 5,000 UNITS/ML 1ML VIAL SQ SCH ×2 (09:57→22:00)
--- NOTE | 2019-11-08 11:29 | EKG ---
Test Reason : Blood Pressure : / mmHG Vent. Rate : 080 BPM Atrial Rate : 080 BPM P-R Int : 114 ms QRS Dur : 074 ms QT Int : 410 ms P-R-T Axes : -03 002 035 degrees QTc Int : 472 ms SINUS RHYTHM WITH PREMATURE SUPRAVENTRICULAR COMPLEXES OTHERWISE NORMAL ECG NO PREVIOUS ECGS AVAILABLE Confirmed by BRANDI MENDOSA, ROSALINA ([id number]) on 11/08/2019 11:29:06 AM Referred By: Confirmed By:ROSALINA PAZ MD
--- NOTE | 2019-11-08 13:04 | ECHO ---
Name: VIVIAN ARAMBULA Exam:Adult Echocardiogram Study Date: 11/08/2019 10:57 AM Age: 68 yrs Reason For Study: vertigo Height: 58 in Weight: 170 lb BSA: 1.7 m2 MMode/2D Measurements & Calculations IVSd: 1.1 cm Ao root diam: 3.2 cm LVIDd: 4.3 cm LA dimension: 3.4 cm LVIDs: 2.9 cm ACS: 1.9 cm LVPWd: 0.76 cm LVPWs: 0.98 cm EDV(Teich): 81.9 ml ESV(Teich): 32.8 ml LVOT diam: 2.0 cm LAV (MOD-bp): 42.0 ml TAPSE: 1.4 cm RV S Jimmy: 13.7 cm/sec Doppler Measurements & Calculations MV V2 max: 138.7 cm/sec MV E max jimmy: 119.7 cm/sec MV max P.7 mmHg MV A max jimmy: 110.4 cm/sec MV V2 mean: 93.5 cm/sec MV E/A: 1.1 MV mean P.8 mmHg MV dec time: 0.27 sec MV V2 VTI: 38.2 cm Ao V2 max: 143.7 cm/sec LV V1 max P.4 mmHg Ao max P.3 mmHg LV V1 max: 92.8 cm/sec JOESPH(V,D): 2.0 cm2 MR max jimmy: 330.0 cm/sec TR max jimmy: 221.4 cm/sec MR max P.3 mmHg TR max P.1 mmHg PA V2 max: 85.5 cm/sec Med Peak E' Jimmy: 6.5 cm/sec PA max P.9 mmHg Med E/e': 18.5 Lat Peak E' Jimmy: 10.0 cm/sec Lat E/e': 12.0 Procedure A complete two-dimensional transthoracic echocardiogram was performed (2D, M-mode, Doppler and color flow Doppler). Left Ventricle The left ventricular size, thickness and function are normal. Ejection Fraction = 60-65%. The left ve ntricular wall motion is normal. Right Ventricle The right ventricle is normal in size and function. Atria Normal left and right atrial size and function. Mitral Valve There is mild mitral regurgitation. Tricuspid Valve There is trace tricuspid regurgitation. Right ventricular systolic pressure is normal. Aortic Valve The aortic valve is trileaflet. No hemodynamically significant valvular aortic stenosis. No aortic regurgitation is present. Pulmonic Valve There is no pulmonic valvular regurgitation. Great Vessels The aortic root is normal size. Pericardium/Pleura There is no pericardial effusion. Interpretation Summary The left ventricular size, thickness and function are normal The right ventricle is normal in size and function. There is mild mitral regurgitation. There is trace tricuspid regurgitation. MD Cristhian Silva 11/08/2019 01:04 PM
--- NOTE | 2019-11-08 14:57 | HP ---
Admitting History and Physical - Admission History of Present Illness: Pt is a 68 y/o female with PMH significant for HTN, IBS and BPPV who presented to the ED with intermittent episodes of nausea, dizziness and RUE tingling since Tuesday. The patient states the episodes are worse with movement, lasting a few minutes and then resolves on its own. The patient states these episodes are similar to prior episodes of vertigo other than the tingling. The patient denies weakness in either extremity. Pt stateed that tingling started in R hand moved up then down R arm, temporarily included L hand, and now only involves R hand. Pt believes tingling happens at same time as vertigo episodes, but seems uncertain. Pt has been painting with latex paint in qtff-rqmbh-ysk room x 9 days, but sx don't change when inside vs outside. Using roller with R hand to paint so R hand more sore. Endorses back pain a few days ago that resolved with alleve. - Past Medical History Cardiovascular: Yes: HTN Gastrointestinal: Yes: Irritable Bowel Disease (with alternating diarrhea and constipation) - Past Surgical History Past Surgical History: Yes: Cholecystectomy (Remote) - Smoking History Smoking history: Never smoked Have you smoked in the past 12 months: No Aproximately how many cigarettes per day: 0 - Alcohol/Substance Use Hx Alcohol Use: No - Social History ADL: Independent Home Medications - Allergies Allergies/Adverse Reactions: Allergies Allergy/AdvReac Type Severity Reaction Status Date / Time No Known Allergies Allergy Verified 11/07/19 15:31 - Home Medications Home Medications: Ambulatory Orders Aspirin [ASA -] 81 mg PO DAILY 01/16/18 Docusate Sodium [Colace] 100 mg PO BID #30 capsule 01/20/18 Oxycodone HCl/Acetaminophen [Percocet 5-325 mg Tablet] 1 tab PO Q6H PRN #16 tablet MDD 4 01/20/18 Aspirin [ASA -] 81 mg PO DAILY #30 tab.chew 01/25/18 Docusate Sodium [Colace -] 100 mg PO TID #90 capsule 01/25/18 Metoprolol Succinate [Toprol XL -] 50 mg PO DAILY #30 tab.sr.24h 01/25/18 Polyethylene Glycol 3350 [Miralax 119 gm Btl -] 17 gm PO DAILY #1 bottle 01/25/18 Family Medical History Family History: Unremarkable Review of Systems - Review of Systems Constitutional: reports: No Symptoms Eyes: reports: No Symptoms HENT: reports: No Symptoms Neck: reports: No Symptoms Cardiovascular: reports: No Symptoms Respiratory: reports: No Symptoms Gastrointestinal: reports: No Symptoms Genitourinary: reports: No Symptoms Physical Examination Vital Signs: Vital Signs Temperature 98.3 F 11/08/19 13:18 Pulse Rate 78 11/08/19 13:18 Respiratory Rate 18 11/08/19 13:18 Blood Pressure 147/85 11/08/19 13:18 O2 Sat by Pulse Oximetry (%) 98 11/08/19 13:18 Constitutional: Yes: Well Nourished Eyes: Yes: WNL HENT: Yes: WNL Neck: Yes: WNL, Supple Cardiovascular: Yes: WNL, Regular Rate and Rhythm Respiratory: Yes: WNL, Regular, CTA Bilaterally Gastrointestinal: Yes: WNL, Normal Bowel Sounds, Soft Musculoskeletal: Yes: WNL Extremities: Yes: WNL Edema: No Neurological: Yes: WNL, Alert, Oriented ...Motor Strength: WNL Labs: CBC, BMP 11/08/19 07:10 11/08/19 07:10 Problem List - Problems (1) Vertigo Assessment/Plan: Cont meclizine Carotid doppler pending Echo did not show any acute pathology DC planning for am Code(s): R42 - DIZZINESS AND GIDDINESS (2) Paresthesia Assessment/Plan: MRI brain did not show any acute pathology Did show old infarct Probable cervical radiculopathy exacerbated by recent painting of rooms Code(s): R20.2 - PARESTHESIA OF SKIN (3) HTN (hypertension) Assessment/Plan: Cont norvasc/metoprolol BP stable Code(s): I10 - ESSENTIAL (PRIMARY) HYPERTENSION
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
--- NOTE | 2019-11-09 08:57 | CONSULT ---
Consult - text type - Consultation Consultation Note: Neurology Admitting History and Physical - Admission History of Present Illness: Pt is a 68 y/o female with PMH significant for HTN, IBS and BPPV who presented to the ED with intermittent episodes of nausea, dizziness and RUE tingling from 7 days prior to admission. The patient stated the episodes are worse with movement, lasting a few minutes and then resolves on its own. The patient stated these episodes are similar to prior episodes of vertigo other than the tingling. The patient denied weakness in either extremity. Pt stated that tingling started in R hand moved up then down R arm, temporarily included L hand, and now only involves R hand. Pt believed tingling happens at same time as vertigo episodes, but seems uncertain. Pt has been painting with latex paint in [id number] room x 9 days, but sx don't change when inside vs outside. Using roller with R hand to paint so R hand more sore. Endorsed back pain a few days ago that resolved with alleve. Head CT performed and showed no acute intracranial pathology, minimal to mild chronic microvascular changes, prominent atherosclerotic calcifications along intracranial vertebral arteries with no definite change since prior study of 09/26/14. MRI of brain also reviewed and demonstrated no acute infarct, very small chronic right cerebellar infarct, and mild-moderate chronic microvascular ischemic changes. Echo completed and showed L. ventricular size, thickness, and function normal. Carotid U/S performed and demonstrated no high-grade carotid artery stenosis. LDL reviewed and 69, within normal limits. Discussed with patient benefit of being on ASA 81mg daily. patient endorses not going to see doctors regularly,, advised her that it would be beneficial for her to have regular care. She was inquiring as to duration of infarct and explained that this cannot be determined but it is not acute or subacute. - Past Medical History Cardiovascular: Yes: HTN Gastrointestinal: Yes: Irritable Bowel Disease (with alternating diarrhea and constipation) - Past Surgical History Past Surgical History: Yes: Cholecystectomy (Remote) - Smoking History Smoking history: Never smoked Have you smoked in the past 12 months: No Aproximately how many cigarettes per day: 0 - Alcohol/Substance Use Hx Alcohol Use: No - Social History ADL: Independent Family Medical History Family History: HTN Review of Systems - Review of Systems Constitutional: reports: No Symptoms Eyes: reports: No Symptoms HENT: reports: No Symptoms Neck: reports: No Symptoms Cardiovascular: reports: No Symptoms Respiratory: reports: No Symptoms Gastrointestinal: reports: No Symptoms Genitourinary: reports: No Symptoms Home Medications - Allergies Allergies/Adverse Reactions: Allergies Allergy/AdvReac Type Severity Reaction Status Date / Time No Known Allergies Allergy Verified 11/07/19 15:31 - Home Medications Home Medications: Ambulatory Orders Aspirin [ASA -] 81 mg PO DAILY 01/16/18 Docusate Sodium [Colace] 100 mg PO BID #30 capsule 01/20/18 Oxycodone HCl/Acetaminophen [Percocet 5-325 mg Tablet] 1 tab PO Q6H PRN #16 tablet MDD 4 01/20/18 Aspirin [ASA -] 81 mg PO DAILY #30 tab.chew 01/25/18 Docusate Sodium [Colace -] 100 mg PO TID #90 capsule 01/25/18 Metoprolol Succinate [Toprol XL -] 50 mg PO DAILY #30 tab.sr.24h 01/25/18 Polyethylene Glycol 3350 [Miralax 119 gm Btl -] 17 gm PO DAILY #1 bottle 01/25/18 Active Medications Aspirin (Asa -) 81 mg PO DAILY [facility] Last Admin: 11/08/19 09:57 Dose: 81 mg Documented by: Docusate Sodium (Colace -) 100 mg PO BID [facility] Last Admin: 11/08/19 22:00 Dose: 100 mg Documented by: Heparin Sodium (Porcine) (Heparin -) 5,000 unit SQ BID [facility] Last Admin: 11/08/19 22:00 Dose: 5,000 unit Documented by: Meclizine HCl (Antivert -) 12.5 mg PO Q6H PRN PRN Reason: VERTIGO Metoprolol Succinate (Toprol Xl -) 50 mg PO DAILY [facility] Last Admin: 11/08/19 09:57 Dose: 50 mg Documented by: Physical Examination Vital Signs: Vital Signs Period Temp Pulse Resp BP Sys/Peck Pulse Ox Last 24 Hr 97.9 F-98.4 F 73-83 18-19 143-171/72-88 95-99 Constitutional: Yes: Well Nourished Eyes: Yes: WNL HENT: Yes: WNL Neck: Yes: WNL, Supple Cardiovascular: Yes: WNL, Regular Rate and Rhythm Respiratory: Yes: WNL, Regular, CTA Bilaterally Gastrointestinal: Yes: WNL, Normal Bowel Sounds, Soft Musculoskeletal: Yes: WNL Extremities: Yes: WNL Edema: No Neurological: AWake, alert, no slurred speech or aphasia, strength intact bilaterally in upper and lower extremities, sensory intact, finger to nose intact, gait slightly antalgic but without ataxia CBCD WBC 7.2 K/mm3 (4.0-10.0) 11/08/19 07:10 RBC 4.04 M/mm3 (3.60-5.2) 11/08/19 07:10 Hgb 11.9 GM/dL (10.7-15.3) 11/08/19 07:10 Hct 36.4 % (32.4-45.2) 11/08/19 07:10 MCV 90.2 fl (80-96) 11/08/19 07:10 MCHC 32.7 g/dl (32.0-36.0) 11/08/19 07:10 RDW 14.2 % (11.6-15.6) 11/08/19 07:10 Plt Count 308 K/MM3 (134-434) 11/08/19 07:10 MPV 7.3 fl (7.5-11.1) L 11/08/19 07:10 CMP Sodium 140 mmol/L (136-145) 11/08/19 07:10 Potassium 3.7 mmol/L (3.5-5.1) 11/08/19 07:10 Chloride 108 mmol/L (98-107) H 11/08/19 07:10 Carbon Dioxide 27 mmol/L (21-32) 11/08/19 07:10 Anion Gap 5 MMOL/L (8-16) L 11/08/19 07:10 BUN 17.3 mg/dL (7-18) 11/08/19 07:10 Creatinine 0.7 mg/dL (0.55-1.3) 11/08/19 07:10 Random Glucose 91 mg/dL (74-106) 11/08/19 07:10 Calcium 8.9 mg/dL (8.5-10.1) 11/08/19 07:10 Total Bilirubin 0.4 mg/dL (0.2-1) 11/08/19 07:10 AST 17 U/L (15-37) 11/08/19 07:10 ALT 17 U/L (13-61) 11/08/19 07:10 Alkaline Phosphatase 105 U/L (45-117) 11/08/19 07:10 Total Protein 6.6 g/dl (6.4-8.2) 11/08/19 07:10 Albumin 3.2 g/dl (3.4-5.0) L 11/08/19 07:10 CARDIAC ENZYMES Creatine Kinase 38 U/L (26-192) 11/08/19 22:30 Troponin I < 0.02 ng/ml (0.00-0.05) 11/08/19 22:30 Assessment/Plan: Pt is a 68 y/o female with PMH significant for HTN, IBS and BPPV who presented to the ED with intermittent episodes of nausea, dizziness and RUE tingling from 7 days prior to admission. The patient stated the episodes are worse with movement, lasting a few minutes and then resolves on its own. The patient stated these episodes are similar to prior episodes of vertigo other than the tingling. The patient denied weakness in either extremity. Pt stated that tingling started in R hand moved up then down R arm, temporarily included L hand, and now only involves R hand. Pt believed tingling happens at same time as vertigo episodes, but seems uncertain. Pt has been painting with latex paint in [id number] room x 9 days, but sx don't change when inside vs outside. Using roller with R hand to paint so R hand more sore. Endorsed back pain a few days ago that resolved with alleve. Head CT performed and showed no acute intracranial pathology, minimal to mild chronic microvascular changes, prominent atherosclerotic calcifications along intracranial vertebral arteries with no definite change since prior study of 09/26/14. MRI of brain also reviewed and demonstrated no acute infarct, very small chronic right cerebellar infarct, and mild-moderate chronic microvascular ischemic changes. Echo completed and showed L. ventricular size, thickness, and function normal. Carotid U/S performed and demonstrated no high-grade carotid artery stenosis. LDL reviewed and 69, within normal limits. Discussed with patient benefit of being on ASA 81mg daily. patient endorses not going to see doctors regularly,, advised her that it would be beneficial for her to have regular care. She was inquiring as to duration of infarct and explained that this cannot be determined but it is not acute or subacute. Provided my information for outpatient follow up. Recommend Meclizine 25 mg up to 3 times a day for vertigo symptoms. She may also benefit from physical therapy, vestibular therapy. Monitor blood pressure, maintain normotensive range with goal less than 140/90 as outpatient. Fall precautions.
[2019-11-09] MEDS: HEPARIN NA (PORCINE) 5,000 UNITS/ML 1ML VIAL SQ SCH (09:47)
[2019-11-09] MEDS: DOCUSATE SODIUM 100 MG CAPSULE (FP) PO SCH (09:48)
[2019-11-09] MEDS: ASPIRIN 81 MG CHEWABLE TABLETS PO SCH (09:48)
[2019-11-09 14:14] VITALS: PULSE 80; TEMP 98.2
[2019-11-09 14:50] VITALS: BP 151/78
== END 2019-11-09 15:07 | disposition home or self-care (01) ==
LOC: JER 14:57 → JERBED 18:34 → INTOOBSV 18:34 → UNDOADMOB 18:34 → J4S 20:19 → JERBED 20:19 → J4S 11-08 14:21
PROVIDERS: ADMIT Internal Medicine; ATTEND Internal Medicine
PROC: 3E023GC Introduction of Other Therapeutic Substance into Muscle, Percutaneous Approach (ICD-10-PCS; principal; 2019-11-08)
PROC: 3E0337Z Introduction of Electrolytic and Water Balance Substance into Peripheral Vein, Percutaneous Approach (ICD-10-PCS; 2019-11-08)
DX: H81.10 Benign paroxysmal vertigo, unspecified ear (principal); I10 Essential (primary) hypertension; R20.2 Paresthesia of skin; E66.9 Obesity, unspecified; Z68.35 Body mass index [BMI] 35.0-35.9, adult; N12 Tubulo-interstitial nephritis, not specified as acute or chronic; K58.9 Irritable bowel syndrome, unspecified; R11.2 Nausea with vomiting, unspecified; K43.9 Ventral hernia without obstruction or gangrene; R27.0 Ataxia, unspecified; N39.0 Urinary tract infection, site not specified; J98.11 Atelectasis; R19.7 Diarrhea, unspecified; R94.5 Abnormal results of liver function studies; K43.2 Incisional hernia without obstruction or gangrene; J10.1 Influenza due to other identified influenza virus with other respiratory manifestations; Z29.9 Encounter for prophylactic measures, unspecified
CPT/HCPCS: 36415; 70450-TC; 70551-TC; 71045-TC-FY; 80053; 80061; 81003; 82550; 83036; 83721; 84443; 84484; 85025; 85610; 87086; 93005; 93010; 93306-TC; 93880-TC; 96372; 99285-25; G0378; J1644; U0003